=== PATIENT | male | born 1955 | race Caucasian/White ===

== ENCOUNTER 2017-11-25 06:33 | Emergency (ER) | payer OTHER ==
[~2017-11-25] VITALS: Ht 175.3 cm; Wt 56.6 kg
[~2017-11-25 06:33] MED LIST: ACET325T96 PO; CALCTAB5 PO; CHOL2000 PO; CLOZ100T PO; CLZ100 PO; DOCU100C31 PO; FERR1TAB13 PO; HYDR-3124 PO; LEVO200T6 PO; PHN/100 PO; PRLSR20 PO; SENN1TAB86 PO
[2017-11-25 06:43] VITALS: Ht 175.3 cm; Wt 56.6 kg
[2017-11-25] MEDS ORDERED: hydrOXYzine HCL 25 MG TAB PO STA (06:52)
[2017-11-25 07:28] LABS: BASO % 0.5 %; BASO ABS # 0.04 K/uL (0-0.2); EOS % 1.5 %; EOS ABS # 0.12 K/uL (0-0.5); HEMATOCRIT 41.7 % (42-52); HEMOGLOBIN 13.8 g/dL (14.0-18.0); IG# 0.02 K/uL (0.00-0.02); LYMPH % 13.7 %; LYMPH ABS # 1.11 K/uL (1.2-3.4); MEAN CORPUSCULAR HEMOGLOBIN 31.4 pg (25-34); MEAN CORPUSCULAR HGB CONC 33.1 g/dl (32-36); MEAN PLATELET VOLUME 11.3 fL (7.4-10.4); MONO % 7.9 %; MONO ABS # 0.64 K/uL (0.11-0.59); NEUT % 76.2 %; NEUT ABS # 6.19 K/uL (1.4-6.5); PLATELET COUNT 116 K/uL (130-400); RED CELL DISTRIBUTION WIDTH SD 48.7 fL (36.4-46.3); WHITE BLOOD COUNT 8.12 K/uL (4.8-10.8)
--- NOTE | 2017-11-25 07:30 | DIAGNOSTIC IMAGING REPORT ---
CHEST ONE VIEW PORTABLE CLINICAL HISTORY: SOB, anxiety dyspnea COMPARISON STUDY: 12/21/2014 FINDINGS: The bones soft tissues and hemidiaphragms are normal. The cardiomediastinal silhouette is normal. The lungs are clear. The pulmonary vasculature is normal. Mild emphysematous/interstitial change. IMPRESSION: Mild emphysematous change. Mild chronic interstitial change. No acute process. The above report was generated using voice recognition software. It may contain grammatical, syntax or spelling errors. Electronically signed by: Christian Lanza M.D. 11/25/2017 7:28 AM Dictated Date/Time: 11/25/2017 7:27 AM
[2017-11-25 07:47] LABS: ALBUMIN 3.3 gm/dl (3.4-5.0); CALCIUM 8.1 mg/dl (8.5-10.1); CREATININE 0.95 mg/dl (0.60-1.40); POTASSIUM 3.7 mmol/L (3.5-5.1)
--- NOTE | 2017-11-25 07:48 | EMERGENCY ROOM VISIT NOTE ---
History Report prepared by Tacho: Rupa Mejia Under the Supervision of: Dr. Migdalia Joshi M.D. First contact with patient: 06:42 Chief Complaint: OTHER COMPLAINT Stated Complaint: TIRED/ANXIETY History of Present Illness The patient is a 61 year old male who presents to the Emergency Room with complaints of constant fatigue and anxiety beginning this morning. The patient states he is "tired and worried". The patient states he lives at the [facility]. an in "old folks home" He states if he worries too much he "cant relax". The patient states he "cant get enough cigarettes" when asked how we can be help him. The patient states he has been "worried about the future" over the past week. He states he walks to a [employer] every morning to get cigarettes and coffee and he is worried about slipping on the ice. He is also worried about being "admitted to the hospital". The patient states he called 911 this morning. Presently, the patient states he feels short of breath. He denies any fever or cough. The patient smokes about 4 cigarettes a day. The patient has a history of schizophrenia. The patient is requesting breakfast. Source of History: patient Onset: this morning Position: other (generalized) Timing: constant Associated Symptoms: + SOB, + fatigue, No fevers Review of Systems See HPI for pertinent positives & negatives. A total of 10 systems reviewed and were otherwise negative. Past Medical & Surgical Medical Problems: (1) Anxiety (2) Arthritis (3) Depression (4) Gastrointestinal disorder (5) Schizophrenia (6) Seizure disorder (7) Stomach problems (8) Thyroid disease Family History No pertinent family history Social History Smoking Status: Current Every Day Smoker Alcohol Use: occasionally Marital Status: single Housing Status: lives alone Occupation Status: disabled Current/Historical Medications Scheduled Calcium (Caltrate), 600 MG PO QAM Cholecalciferol (Vitamin D3), 1 CAP PO QAM Clozapine (Clozaril), 100 MG PO QAM Clozapine (Clozapine), 300 MG PO HS Ferrous Sulfate (Kp Ferrous Sulfate), 1 TAB PO QAM Hydroxyzine Hcl (Atarax), 25 MG PO HS Omeprazole (Prilosec), 20 MG PO BID Phenytoin Sodium (Dilantin), 100 MG PO TID Scheduled PRN Acetaminophen Tab (Tylenol), 650 MG PO Q6H PRN for Pain or Fever Docusate Sodium (Docusate Sodium), 1 CAP PO DAILY PRN for Constipation Hydroxyzine Pamoate (Vistaril), 25 MG PO Q6 PRN for Anxiety Sennosides-Docusate Sodium (Sennalax-S), 1 TAB PO DAILY PRN for Constipation Allergies Coded Allergies: No Known Allergies (Verified , none, 11/25/17) Physical Exam Vital Signs Date Time Temp Pulse Resp B/P (MAP) Pulse Ox O2 Delivery O2 Flow Rate FiO2 11/25/17 11:10 36.7 81 18 123/74 97 Room Air 11/25/17 10:53 76 11/25/17 09:36 77 105/82 96 11/25/17 08:01 71 99/60 96 Room Air 11/25/17 06:43 36.5 86 16 99/82 96 Room Air 11/25/17 06:41 85 Physical Exam Vital signs reviewed. General: Well-appearing male, in no significant distress. HEENT: No scleral icterus, PERRLA, neck supple. Atraumatic. Cardiovascular: Regular rate and rhythm, no extra sounds. Pulmonary: Clear to auscultation bilaterally, normal work of breathing. Abdomen: Soft, nontender, nondistended, positive bowel sounds. Musculoskeletal: Atraumatic, no peripheral edema. Neurologic: Patient awake alert and oriented x 3, full strength in all 4 extremities. Cranial nerves 2 through 12 grossly intact. Skin: Warm, dry, no rash Psych: Anxious, no SI no HI Medical Decision & Procedures ER Provider Diagnostic Interpretation: Radiology results as stated below per my review and radiologist interpretation: CHEST ONE VIEW PORTABLE FINDINGS: The bones soft tissues and hemidiaphragms are normal. The cardiomediastinal silhouette is normal. The lungs are clear. The pulmonary vasculature is normal. Mild emphysematous/interstitial change. IMPRESSION: Mild emphysematous change. Mild chronic interstitial change. No acute process. The above report was generated using voice recognition software. It may contain grammatical, syntax or spelling errors. Electronically signed by: Christian Lanza M.D. Laboratory Results 11/25/17 07:13 Red Blood Count 4.39, Mean Corpuscular Volume 95.0, Mean Corpuscular Hemoglobin 31.4, Mean Corpuscular Hemoglobin Concent 33.1, Mean Platelet Volume 11.3, Neutrophils (%) (Auto) 76.2, Lymphocytes (%) (Auto) 13.7, Monocytes (%) (Auto) 7.9, Eosinophils (%) (Auto) 1.5, Basophils (%) (Auto) 0.5, Neutrophils # (Auto) 6.19, Lymphocytes # (Auto) 1.11, Monocytes # (Auto) 0.64, Eosinophils # (Auto) 0.12, Basophils # (Auto) 0.04 11/25/17 07:13 Test 11/25/17 07:13 11/25/17 07:22 White Blood Count 8.12 K/uL (4.8-10.8) Red Blood Count 4.39 M/uL (4.7-6.1) Hemoglobin 13.8 g/dL (14.0-18.0) Hematocrit 41.7 % (42-52) Mean Corpuscular Volume 95.0 fL (80-100) Mean Corpuscular Hemoglobin 31.4 pg (25-34) Mean Corpuscular Hemoglobin Concent 33.1 g/dl (32-36) Platelet Count 116 K/uL (130-400) Mean Platelet Volume 11.3 fL (7.4-10.4) Neutrophils (%) (Auto) 76.2 % Lymphocytes (%) (Auto) 13.7 % Monocytes (%) (Auto) 7.9 % Eosinophils (%) (Auto) 1.5 % Basophils (%) (Auto) 0.5 % Neutrophils # (Auto) 6.19 K/uL (1.4-6.5) Lymphocytes # (Auto) 1.11 K/uL (1.2-3.4) Monocytes # (Auto) 0.64 K/uL (0.11-0.59) Eosinophils # (Auto) 0.12 K/uL (0-0.5) Basophils # (Auto) 0.04 K/uL (0-0.2) RDW Standard Deviation 48.7 fL (36.4-46.3) RDW Coefficient of Variation 14.0 % (11.5-14.5) Immature Granulocyte % (Auto) 0.2 % Immature Granulocyte # (Auto) 0.02 K/uL (0.00-0.02) Anion Gap 9.0 mmol/L (3-11) Est Creatinine Clear Calc Drug Dose 63.7 ml/min Estimated GFR () 98.3 Estimated GFR (Non- 84.9 BUN/Creatinine Ratio 13.9 (10-20) Calcium Level 8.1 mg/dl (8.5-10.1) Magnesium Level 2.1 mg/dl (1.8-2.4) Total Bilirubin 0.5 mg/dl (0.2-1) Direct Bilirubin 0.2 mg/dl (0-0.2) Aspartate Amino Transf (AST/SGOT) 16 U/L (15-37) Alanine Aminotransferase (ALT/SGPT) 27 U/L (12-78) Alkaline Phosphatase 107 U/L (45-117) Total Creatine Kinase 55 U/L (39-308) Creatine Kinase MB 1.2 ng/ml (0.5-3.6) Creatine Kinase MB Ratio 2.2 (0-3.0) Total Protein 6.7 gm/dl (6.4-8.2) Albumin 3.3 gm/dl (3.4-5.0) Salicylates Level < 1.7 mg/dl (2.8-20) Acetaminophen Level < 2 ug/ml (10-30) Phenytoin (Dilantin) Level 17.5 mcg/mL (10-20) Ethyl Alcohol mg/dL < 3.0 mg/dl (0-3) Bedside Troponin I < 0.030 ng/ml (0-0.045) Laboratory results per my review. Medications Administered Medications (Trade) Dose Ordered Sig/Kev Route Start Time Stop Time Status Last Admin Dose Admin Hydroxyzine HCl (Vistaril Tab) 25 mg NOW STAT PO 11/25/17 06:52 11/25/17 06:54 DC 11/25/17 07:13 25 MG ECG Indication: other Rate (beats per minute): 78 Rhythm: normal sinus Findings: no acute ischemic change, no ectopy Change: EKG interpreted by me. ED Course 0649: Past medical records reviewed. The patient was evaluated in room B2. A complete history and physical examination was performed. 0652: Ordered Vistaril Tab 25 mg PO. 0943: The psychiatric geriatric case manager will evaluate the patient. 1050: Terri-psychiatric geriatric case manager evaluated the patient. She states the patient is safe to go back to his assisted-living home. Terri called his assisted living and advised them to talk to psychiatrist to follow up for his anxiety. She states the patient does not need a mental health admission. 1138: Upon reevaluation, the patient appeared to have improvement of his symptoms. I discussed findings with him. She verbalized agreement of the treatment plan. The patient was discharged home. Medical Decision Differential diagnosis: Etiologies such as mood disorder, infection, hypoglycemia, electrolyte abnormalities, cardiac sources, intracerebral event, toxicologic, neurologic, ACS, CHF, pneumonia, as well as others were entertained. This patient was evaluated and appeared to be in no significant distress. The patient is anxious and somewhat scattered with his thought process. Patient seems to be anxious, worried about his future health and slipping on the ice. Patient was given Vistaril 25 mg by mouth. He does have a documented history of schizophrenia. A medical evaluation was performed. There is no evidence of acute coronary syndrome or pneumonia on exam. He apparently follows with an outpatient psychiatrist. The patient lives in a supervised living situation. After case management contacted the nursing facility, it was clear that this is the patient's baseline. They were not aware that he had called the ambulance. The patient feels comfortable with the plan to return home. Nursing staff feels comfortable with his care. He was advised to use his Vistaril every 6 hours as needed for anxiety. He will follow-up with his psychiatrist as soon as possible and return to the ER for worsening of symptoms or any medical concerns. Medication Reconcilliation Current Medication List: was personally reviewed by me Blood Pressure Screening Patient's blood pressure: Normal blood pressure Impression Primary Impression: Anxiety Scribe Attestation The scribe's documentation has been prepared under my direction and personally reviewed by me in its entirety. I confirm that the note above accurately reflects all work, treatment, procedures, and medical decision making performed by me. Departure Information Dispostion Home / Self-Care Prescriptions Hydroxyzine Pamoate (VISTARIL) 25 Mg Cap 25 MG PO Q6 Y for Anxiety, #30 CAP Prov: Migdalia Joshi M.D. 11/25/17 Referrals Chidi Hunt M.D. (PCP) Forms HOME CARE DOCUMENTATION FORM, IMPORTANT VISIT INFORMATION, WORK / SCHOOL INSTRUCTIONS Patient Instructions My [facility] Additional Instructions Diagnosis: Anxiety Vistaril 25 mg every 6 hours as needed for anxiety Follow up with your psychiatrist ARNIE for reevaluation. Return to the ED for worsening of symptoms or any medical concerns.
[2017-11-25 07:51] LABS: PHENYTOIN (DILANTIN) 17.5 mcg/mL (10-20)
[2017-11-25 07:52] LABS: CKMB 1.2 ng/ml (0.5-3.6); TOTAL PROTEIN 6.7 gm/dl (6.4-8.2)
[2017-11-25 11:10] VITALS: BP 123/74; PULSE 81; TEMP 36.7; O2SAT 97
[2017-11-25] MEDS ORDERED: HYDR1CAP85 PO (11:29)
== END 2017-11-25 11:48 | disposition home or self-care (01) ==
LOC: EDBD 06:33 → C.EDB 06:34
DX: F41.9 Anxiety disorder, unspecified (principal); F17.210 Nicotine dependence, cigarettes, uncomplicated; F20.9 Schizophrenia, unspecified; F32.9 Major depressive disorder, single episode, unspecified; G40.909 Epilepsy, unspecified, not intractable, without status epilepticus; M19.90 Unspecified osteoarthritis, unspecified site; Z79.899 Other long term (current) drug therapy

== ENCOUNTER 2018-03-01 06:32 | Emergency (ER) | payer OTHER ==
[~2018-03-01] VITALS: Ht 177.8 cm; Wt 54.0 kg
[~2018-03-01 06:32] MED LIST changes: +ACET-1693 PO; -ACET325T96 PO; -LEVO200T6 PO
[2018-03-01 06:35] VITALS: TEMP 36.5; Ht 177.8 cm; Wt 54.0 kg
[2018-03-01] MEDS ORDERED: CALC-393 PO (07:36)
[2018-03-01] MEDS ORDERED: CLZ100 PO (07:36)
[2018-03-01] MEDS ORDERED: LEVO200T PO (07:36)
--- NOTE | 2018-03-01 07:36 | DIAGNOSTIC IMAGING REPORT ---
CHEST ONE VIEW PORTABLE HISTORY: 62 years-old Male CP acute atypical chest pain COMPARISON: Chest radiograph 11/25/2017 TECHNIQUE: Portable AP view of the chest FINDINGS: Cardiomediastinal and hilar silhouettes are within normal limits. Mild right apical pleural thickening redemonstrated without pneumothorax, pleural effusion, focal airspace consolidation or overt pulmonary edema. The bones of the chest appear grossly intact. IMPRESSION: No acute process. The above report was generated using voice recognition software. It may contain grammatical, syntax or spelling errors. Electronically signed by: Darryl Fry M.D. 03/01/2018 7:34 AM Dictated Date/Time: 03/01/2018 7:33 AM
--- NOTE | 2018-03-01 07:56 | EMERGENCY ROOM VISIT NOTE ---
History Report prepared by Tacho: Jatin Castañeda Under the Supervision of: Dr. Slim Skinner D.O. First contact with patient: 06:37 Chief Complaint: SHORTNESS OF BREATH Stated Complaint: BREATHING DIFFICULTY Nursing Triage Summary: patient states " I've had difficulty breathing for the past eight years and tonight I was thinking about it and I got nervous. Sometimes its nice just to talk to someone about it. Eating apples usually helps". patient arrives eating an apple and states he is already starting to feel better now that he is at the hospital. denies any active SOB at this time. History of Present Illness The patient is a 62 year old male who presents to the Emergency Room with complaints of constant chest pain for the past 8 years, though it worsened today. He additionally notes that he has had left chest tightness for the past 8 years. The patient states that yesterday he was not "behaving right", and he could not figure out how to use his credit card. He states that he smokes cigarettes. Source of History: patient Onset: 8 years ago Position: other (generalized) Quality: other (shortness of breath) Timing: constant, worsening Note: Associated symptoms: Chest tightness Review of Systems See HPI for pertinent positives & negatives. A total of 10 systems reviewed and were otherwise negative. Past Medical & Surgical Medical Problems: (1) Anxiety (2) Arthritis (3) Depression (4) Gastrointestinal disorder (5) Schizophrenia (6) Seizure disorder (7) Stomach problems (8) Thyroid disease Family History No pertinent family history Social History Smoking Status: Former Smoker Alcohol Use: occasionally Marital Status: single Housing Status: lives alone Occupation Status: disabled Current/Historical Medications Scheduled Calcium Carbonate (Calcium), 1 TAB PO DAILY Cholecalciferol (Vitamin D3), 1 CAP PO QAM Clozapine (Clozapine), 300 MG PO HS Clozapine (Clozapine), 100 MG PO QAM Ferrous Sulfate (Kp Ferrous Sulfate), 1 TAB PO QAM Hydroxyzine Hcl (Atarax), 25 MG PO HS Levothyroxine Sodium (Synthroid), 200 MCG PO DAILY Omeprazole (Prilosec), 20 MG PO BID Phenytoin Sodium (Dilantin), 100 MG PO TID Scheduled PRN Acetaminophen Tab (Tylenol), 650 MG PO Q6H PRN for Pain or Fever Sennosides-Docusate Sodium (Sennalax-S), 1 TAB PO DAILY PRN for Constipation Allergies Coded Allergies: No Known Allergies (Verified , none, 03/01/18) Physical Exam Vital Signs Date Time Temp Pulse Resp B/P (MAP) Pulse Ox O2 Delivery O2 Flow Rate FiO2 03/01/18 07:59 73 16 107/66 97 Room Air 03/01/18 06:35 36.5 83 20 115/79 96 Room Air 03/01/18 06:35 96 Room Air Physical Exam CONSTITUTIONAL/VITAL SIGNS: Reviewed / noted above. GENERAL: Non-toxic in appearance. INTEGUMENTARY: Warm, dry, and [place]. HEAD: Normocephalic. EYES: without scleral icterus or trauma. ENT/OROPHARYNX: clear and moist. LYMPHADENOPATHY/NECK: Is supple without lymphadenopathy or meningismus. RESPIRATORY: Lungs clear and equal. CARDIOVASCULAR: Regular rate and rhythm. GI/ABDOMEN: Soft and nontender. No organomegaly or pulsatile mass. No rebound or guarding. Normal bowel sounds. EXTREMITIES: Warm and well perfused. BACK: No CVA tenderness. NEUROLOGICAL: Intact without focal deficits. PSYCHIATRIC: normal affect. MUSCULOSKELETAL: Normally developed with good muscle tone. Medical Decision & Procedures ER Provider Diagnostic Interpretation: Radiology results as stated below per my review and radiologist interpretation: CHEST ONE VIEW PORTABLE HISTORY: 62 years-old Male CP acute atypical chest pain COMPARISON: Chest radiograph 11/25/2017 TECHNIQUE: Portable AP view of the chest FINDINGS: Cardiomediastinal and hilar silhouettes are within normal limits. Mild right apical pleural thickening redemonstrated without pneumothorax, pleural effusion, focal airspace consolidation or overt pulmonary edema. The bones of the chest appear grossly intact. IMPRESSION: No acute process. The above report was generated using voice recognition software. It may contain grammatical, syntax or spelling errors. Electronically signed by: Darryl Fry M.D. 03/01/2018 7:34 AM Dictated Date/Time: 03/01/2018 7:33 AM ECG Per My Interpretation Indication: chest pain, SOB/dyspnea Rate (beats per minute): 77 Rhythm: normal sinus Findings: no ectopy, other (No ST elevation) ED Course 0637: Previous medical records were reviewed. The patient was evaluated in room B7. A complete history and physical examination was performed. 0759: On reevaluation, the patient is doing well. I discussed the results and findings with the patient. He verbalized agreement of the treatment plan. He was discharged home. Medical Decision the differential was considered includes acute myocardial infarction, acute coronary syndrome, myocarditis, pericarditis, pericardial effusions /tamponade, esophageal perforation, pulmonary embolism, pneumonia, pneumothorax, cardiomyopathy, congestive heart, anemia , COPD/asthma exacerbation. This is a 62-year-old male who presents to the ED with a chief complaint of chest pain and shortness of breath for the past 8 years. He decided to come to the ED today because he has not had it checked. The patient has a history of schizophrenia and anxiety. He also has a history of seizure disorder. His vital signs are normal. His physical exam was normal. A 12-lead EKG reveals normal sinus rhythm. Chest x-ray was negative for acute disease. The patient did not want blood work. The patient was told the results of the test. He was felt to be stable for discharge. Medication Reconcilliation Current Medication List: was personally reviewed by me Blood Pressure Screening Patient's blood pressure: Normal blood pressure Impression Primary Impression: Dyspnea Additional Impression: Left sided chest pain Scribe Attestation The scribe's documentation has been prepared under my direction and personally reviewed by me in its entirety. I confirm that the note above accurately reflects all work, treatment, procedures, and medical decision making performed by me. Departure Information Dispostion Home / Self-Care Referrals Chidi Hunt M.D. (PCP) Forms HOME CARE DOCUMENTATION FORM, IMPORTANT VISIT INFORMATION Patient Instructions Chest Pain - [facility], [facility] Additional Instructions Follow-up with your doctor for further care and evaluation in 1-2 days. Return to the emergency department for worsening or new symptoms or any concerns. You have been examined and treated today on an emergency basis only. This is not a substitute for, or an effort to provide, complete comprehensive medical care. It is impossible to recognize and treat all injuries or illnesses in a single emergency department visit. It is therefore important that you follow up closely with your doctor. Call as soon as possible for an appointment. Problem Qualifiers
[2018-03-01 07:59] VITALS: BP 107/66; PULSE 73; O2SAT 97
== END 2018-03-01 08:15 | disposition home or self-care (01) ==
LOC: EDBD 06:32 → C.EDB 06:33
DX: R06.00 Dyspnea, unspecified (principal); R07.9 Chest pain, unspecified; F41.9 Anxiety disorder, unspecified; M19.90 Unspecified osteoarthritis, unspecified site; F32.9 Major depressive disorder, single episode, unspecified; F20.9 Schizophrenia, unspecified; G40.909 Epilepsy, unspecified, not intractable, without status epilepticus; Z87.891 Personal history of nicotine dependence; Z79.899 Other long term (current) drug therapy

== ENCOUNTER 2025-09-08 11:13 | Inpatient (IN) ==
--- NOTE | 2025-09-08 12:03 | Emergency Department Note ---
History of Present Illness General Chief complaint: Mental Health Evaluation Stated complaint: mhe Time Seen by Provider: 09/08/25 11:15 Source: patient Mode of arrival: EMS Limitations: no limitations History of Present Illness Patient is a 69-year-old male with history of schizophrenia who presents by EMS from a [facility] after intentionally cutting his wrist. He attempted to cut his left wrist with scissors in order to "get the blood out of his body". He did not have any intent to commit suicide he just stated that he had "too much blood in his body". Bleeding stopped prior to arrival. Laceration is very superficial. Denies any HI at this time. No auditory or visual hallucinations. He last stopped his psych medication on Saturday. Patient denies any headache, fevers, chills, cough, shortness of breath, chest pain, nausea, vomiting, abdominal pain. Home Medications Medication Instructions Recorded Confirmed Type omeprazole 20 mg capsule,delayed 20 mg PO BID 09/06/18 07/14/25 History release hydroxyzine pamoate 25 mg capsule 25 mg PO HS #5 caps 01/01/20 07/14/25 Rx cyanocobalamin (vitamin B-12) 1,000 mcg PO DAILY #90 tabs 07/03/23 07/14/25 Rx 1,000 mcg tablet (Vitamin B-12) clozapine 100 mg tablet 100 mg PO BID 03/24/24 07/14/25 History clozapine 200 mg tablet 200 mg PO HS 03/24/24 07/14/25 History cholecalciferol (vitamin D3) 50 2,000 unit PO QPM 04/20/25 07/14/25 History mcg (2,000 unit) tablet (Vitamin D3) ferrous sulfate 325 mg (65 mg 325 mg PO QAM 04/20/25 07/14/25 History iron) tablet levothyroxine 137 mcg tablet 137 mcg PO QAM 04/20/25 07/14/25 History calcium carbonate (Calcium 600) 600 mg PO QAM 07/13/25 07/14/25 History sertraline 50 mg tablet 50 mg PO DAILY 07/13/25 07/14/25 History acetaminophen 325 mg tablet 325 - 650 mg PO Q6 PRN pain. 07/14/25 07/14/25 History cholecalciferol (vitamin D3) 25 25 mcg PO QPM 07/14/25 07/14/25 History mcg (1,000 unit) tablet (Vitamin D3) eucalyptus-menthol oral mucosal 1 john paul mucous membrane Q4 PRN Cough 07/14/25 07/14/25 History lozenge linaclotide 290 mcg capsule 290 mcg PO DAILY #30 caps 07/22/25 Rx (Linzess) polyethylene glycol 3350 17 17 g PO DAILY #119 grams 07/22/25 Rx gram/dose oral powder (Miralax) sennosides 8.6 mg tablet (Senna 8.6 mg PO QPM #30 tabs 07/22/25 Rx Lax) sodium phosphates 19 gram-7 118 ml DC DAILY PRN constipation 07/22/25 Rx gram/118 mL enema (Fleet Enema) #133 mL Allergies Allergy/AdvReac Type Severity Reaction Status Date / Time No Known Allergies Allergy none Verified 03/24/24 14:14 Past Med/Surg History Problem List (Updated 09/08/25 @ 14:07 by Matt Stuart MD) Delusional thoughts (Acute) Superficial laceration of forearm (Acute) Suicidal ideations (Acute) Acute UTI (urinary tract infection) (Acute) Schizophrenia (Chronic) Hyperlipidemia Delgado esophagus (Chronic) Hypothyroidism (Chronic) Nonadherence to medical treatment Intentional self-harm Acute lower urinary tract infection Constipation (Chronic) Vitamin B12 deficiency (Chronic) Arthritis (Chronic) Medical History History of colonic polyps Impacted cerumen of both ears Left buttock abscess Stercoral colitis Fecal impaction Acute metabolic encephalopathy Abnormal brain MRI Acute urinary retention Rhinovirus infection Seizure disorder taken off dilantin History of colon polyps Hiatal hernia History of panic attacks Fracture of femoral neck, left Surgical History History of incision and drainage (07/16/25) Dr. Silvestre buttock abscess History of colonoscopy History of repair of hip fracture left History of esophagogastroduodenoscopy (EGD) Family History Mother Family history of diabetes mellitus Other Family history non-contributory Denies family history of Ovarian cancer Prostate cancer Myocardial infarction Breast cancer Colorectal cancer Social History Smoking Status: Former smoker Tobacco Type: Cigarettes Age Started Using Tobacco: 18; packs per day: 0.25; Cigarettes Per Day: 1-3 a week; Second Hand Exposure: No; Do You Dip or Chew Tobacco: No; Hx Alcohol Use: No Hx Substance Use: No Preferred Language: Qatari Communication Ability: Effective Visual Impairment: No Limitations Hearing Ability: Normal Order Department Supervisor Required: No Beliefs That Will Affect Care: None Current Living Situation: Personal Care Facility Current Living Situation Comment: [facility] Feels Safe at Home: Yes Childhood Exposure to Second-Hand Smoke: Yes Dental Care, Regularly: No Physical Activity Frequency: 3-4 Times per Week Seatbelt Use: always Sunscreen Use: No Assistive Devices: Walker Review of Systems Review of systems negative outside of positive findings mentioned in HPI. Physical Exam Vital Signs Vital Signs - 24 hr 09/08/25 11:30 09/08/25 13:31 Temperature 36.4 C L Temperature Source Oral Pulse Rate 84 Pulse Rate [Finger] 72 Respiratory Rate 20 18 Respiratory Effort / Characteristics Non-Labored Spontaneous Non-Labored Spontaneous Respiratory Depth Normal Normal Respiratory Pattern Regular Regular Blood Pressure 113/70 Blood Pressure [Left Arm] 123/69 Blood Pressure Mean 84 Blood Pressure Mean [Left Arm] 87 Pulse Oximetry 96 97 Oxygen Delivery Method Room Air Room Air Sepsis Recent Fever Within 48 Hours No Sepsis New/Unexplained Change in Mental Status N/A Sepsis Action Taken by Nursing No Action Required See below Constitutional WD/WN, vitals as above Eyes PERRL, conjunctivae normal, anicteric sclerae ENMT external ear and nose normal, oropharynx normal Neck trachea midline, no thyromegaly Respiratory normal respiratory effort, lungs clear to auscultation Cardiovascular RRR, no murmur, no edema Gastrointestinal (Abdomen) normal bowel sounds, soft, nontender, no hepatosplenomegaly Musculoskeletal no cyanosis or clubbing, extremities motor strength 5/5 Skin no rashes, warm and dry Psychiatric A+Ox3, euthymic affect Orientation: alert and oriented x 3 Apperance: + disheveled Eye Contact: good eye contact Speech: speech normal rate, rhythm, volume Affect: euthymic affect Thought Process: linear, logical thought process Thought Content: + delusions Suicidal Thoughts: denies suicidal thoughts Homicidal Thoughts: denies suicidal thoughts Hallucinations: no auditory hallucinations and no visual hallucinations Insight: good insight Judgment: + poor judgement Course Administered Medications Discontinued Medications Ceftriaxone Sodium (Rocephin) 2,000 mg in 50 mls @ 100 mls/hr IV NOW STA Stop: 09/08/25 13:24 Last Infusion: 09/08/25 13:17 Dose: 0 mls/hr Documented By: kam Admin: 09/08/25 13:16 Dose: 100 mls/hr Documented By: kam Medical Decision Making Differential Diagnosis DDx includes but not limited to: UTI, sepsis, metabolic encephalopathy, intracranial abnormality, paranoid delusions, decompensated schizophrenia, SI Medical Records Attestation: I reviewed the patient's medical records. Home Medications Current Medication List: was personally reviewed by me Laboratory Data Attestation: I reviewed the patient's lab results. 09/08/25 11:43 09/08/25 11:43 Lab Results 09/08/25 09/08/25 Range/Units 11:37 11:43 WBC 18.74 H (4.8-10.8) K/ul RBC 4.90 (4.70-6.10) M/uL Hgb 14.2 (14.0-18.0) g/dL Hct 43.5 (42.0-52.0) % MCV 88.8 (80.0-100.0) fL MCH 29.0 (25.0-34.0) pg MCHC 32.6 (32.0-36.0) g/dL RDW Std Deviation 47.7 H (36.4-46.3) fL RDW Coeff of Stefani 14.7 H (11.5-14.5) % Plt Count 203 (130-400) K/uL MPV 12.3 (9.4-12.4) fL Immature Gran % (Auto) 0.5 % Neut % (Auto) 82.3 % Lymph % (Auto) 10.8 % Amelia % (Auto) 6.1 % Eos % (Auto) 0.1 % Baso % (Auto) 0.2 % Neut # (Auto) 15.42 H (1.40-6.50) K/uL Lymph # (Auto) 2.03 (1.20-3.40) K/uL Amelia # (Auto) 1.15 H (0.11-0.59) K/uL Eos # (Auto) 0.02 (0.00-0.50) K/uL Baso # (Auto) 0.03 (0.00-0.20) K/uL Immature Gran # (Auto) 0.09 (0.01-0.20) K/uL Sodium 139 (136-145) mmol/L Potassium 3.2 L (3.5-5.1) mmol/L Chloride 93 L (98-107) mmol/L Carbon Dioxide 35 H (21-32) mmol/L Anion Gap 11 (3-11) BUN 29 H (6-23) mg/dl Creatinine 1.16 (0.6-1.4) mg/dl Est Cr Clr Drug Dosing Not Reportable eGFR 67.34 BUN/Creatinine Ratio 25.0 H (10-20) Glucose 132 H (70-99(Fasting)) mg/dl Calcium 10.1 (8.6-10.3) mg/dl Total Bilirubin 0.5 (0.2-1.0) mg/dl AST 16 (13-39) U/L ALT 12 (7-52) U/L Alkaline Phosphatase 74 (34-104) U/L Total Protein 7.6 (6.0-8.3) gm/dl Albumin 4.7 (3.4-5.0) gm/dl Globulin 2.9 (2.5-4.0) gm/dl Albumin/Globulin Ratio 1.6 (0.9-2) TSH 0.590 (0.300-4.500) uIu/ml Urine Color Yellow Urine Appearance Cloudy A (Clear) Urine pH 7.0 (4.5-7.5) Ur Specific [place] 1.021 (1.000-1.030) Urine Protein 1+ H (Negative) Urine Glucose (UA) Negative (Negative) Urine Ketones Negative (Negative) Urine Blood Negative (Negative) Urine Nitrite Negative (Negative) Urine Bilirubin Negative (Negative) Urine Urobilinogen Negative (Negative) Ur Leukocyte Esterase 3+ H (Negative) Urine WBC (Auto) >50 H (0-5) /hpf Urine RBC (Auto) 0-2 (0-2) /hpf U Hyaline Cast (Auto) 6-10 H (0-2) /lpf U Epithel Cells (Auto) 0-2 (0-2) /hpf Urine Bacteria (Auto) 4+ H (None Seen) Hyaline Casts Present A (None Presnt) /lpf Urine Comment Salicylates < 3.0 L (3.0-30) mg/dl Urine Opiates Screen Neg (Neg) Ur Methadone, Qual Neg (Neg) Urine Fentanyl Screen Neg (Neg) Acetaminophen < 3 L (10-30) ug/ml Urine Barbiturates Neg (Neg) Ur Phencyclidine (PCP) Neg (Neg) U Amphetamin/Meth Scrn Neg (Neg) MDMA (Ecstasy) Screen Neg (Neg) U Benzodiazepines Scrn Neg (Neg) Ur Cocaine Metabolite Neg (Neg) U Marijuana (THC) Screen Neg (Neg) Ethyl Alcohol mg/dL < 10.0 (<10.0) mg/dl Imaging Data Radiologist's Impression: Head CT 09/08/25 11:58 CT head/brain wo con CLINICAL HISTORY: 69 years-old Male with AMS. Acutely altered mental status TECHNIQUE: Multiple axial CT images of the head were obtained without contrast. A dose lowering technique was utilized adhering to the principles of ALARA. CT DOSE: 625.8 mGy.cm COMPARISON: 07/13/[address], brain MR 07/14/2025 FINDINGS: No acute intracranial hemorrhage, midline shift, intracranial mass, hydrocephalus, territorial ischemia or abnormal extra-axial collection. Involutional changes with probable mild chronic microvascular ischemic disease. The calvarium is intact. The paranasal sinuses, mastoid air cells, and middle ear cavities are clear. IMPRESSION: No acute intracranial abnormality identified. ACT 112: Negative or not required by law. The above report was generated using voice recognition software. It may contain grammatical, syntax or spelling errors. Electronically signed by: Miguel Fry M.D. 09/08/2025 1:12 PM [facility] Narrative Patient is a 69-year-old male with history as seen above who presents after he attempted to "drain blood out of his wrist". His bleeding was controlled prior to arrival. Superficial lacerations were noted on my examination. No evidence of vascular compromise to the wrist or hand. No indication for bedside repair of lacerations. Can be managed with localized wound care. No patient is awake and alert and oriented here today he does express some delusional thoughts such as "there is extra blood in my body and brain I need to get out". Story was corroborated with staff at [facility] who does state that he has had expressed some depressive thoughts recently. Medical workup was initiated here today for psychiatric clearance. Patient does have a leukocytosis of 18,000. No signs of endorgan damage or concern for sepsis. UA is consistent with infection. Though unlikely the source of his delusions cannot attribute all symptoms to underlying psychiatric illness until UTI has been appropriately treated and psychiatry has been consulted. Will admit to hospitalist service for management of UTI and delusional thought process as well as SI. IV Rocephin dose was given here today. Blood cultures were obtained and sent. Impression & Plan Acute UTI (urinary tract infection), Suicidal ideations, Superficial laceration of forearm, Delusional thoughts Discharge Plan Visit Data Chief Complaint: Mental Health Evaluation Stated Complaint: mhe ED Provider: Matt Stuart Discharge Problem: Acute UTI (urinary tract infection), Suicidal ideations, Superficial laceration of forearm, Delusional thoughts Patient Disposition: Admitted As Inpatient Condition: Good Forms Stand Alone Forms: My [facility], Suicide Prevention Resources Prescriptions Prescriptions: No Action hydroxyzine pamoate 25 mg capsule 25 mg PO HS Qty: 5 0RF cyanocobalamin (vitamin B-12) [Vitamin B-12] 1,000 mcg tablet 1,000 mcg PO DAILY Qty: 90 3RF clozapine 200 mg tablet 200 mg PO HS omeprazole 20 mg capsule,delayed release(DR/EC) 20 mg PO BID clozapine 100 mg tablet 100 mg PO BID Rx Instructions: 8am, 8pm levothyroxine 137 mcg tablet 137 mcg PO QAM ferrous sulfate 325 mg (65 mg iron) tablet 325 mg PO QAM cholecalciferol (vitamin D3) [Vitamin D3] 50 mcg (2,000 unit) tablet 2,000 unit PO QPM sertraline 50 mg tablet 50 mg PO DAILY calcium carbonate [Calcium 600] 600 mg calcium (1,500 mg) tablet 600 mg PO QAM cholecalciferol (vitamin D3) [Vitamin D3] 25 mcg (1,000 unit) Tablet 25 mcg PO QPM acetaminophen 325 mg Tablet 325 - 650 mg PO Q6 MDD 3g PRN (Reason: pain.) eucalyptus-menthol Lozenge 1 john paul MUCOUS MEMBRANE Q4 PRN (Reason: Cough) sennosides [Senna Lax] 8.6 mg Tablet 8.6 mg PO QPM Qty: 30 0RF Linzess 290 mcg capsule 290 mcg PO DAILY Qty: 30 0RF polyethylene glycol 3350 [Miralax] 17 gram/dose powder 17 g PO DAILY Qty: 119 0RF Fleet Enema 19-7 gram/118 mL enema 118 ml DC DAILY PRN (Reason: constipation) Qty: 133 0RF Rx Instructions: Please use as needed if you do not move your bowels for greater than 3 days. Referrals Referrals: [facility] [Non-Staff] -
[2025-09-08 12:08] LABS: Hematocrit (blood only) 43.5 % (42.0-52.0); Hemoglobin 14.2 g/dL (14.0-18.0); Immature Granulocytes # (auto) 0.09 K/uL (0.01-0.20); Immature Granulocytes % (auto) 0.5 %; Mean Corpuscular Hemoglobin 29.0 pg (25.0-34.0); Mean Corpuscular Volume 88.8 fL (80.0-100.0); Platelet Count 203 K/uL (130-400); RDW Standard Deviation 47.7 fL (36.4-46.3); Red Blood Count 4.90 M/uL (4.70-6.10); White Blood Count 18.74 K/ul (4.8-10.8)
[2025-09-08 12:13] LABS: Appearance Urine Cloudy (Clear); Bacteria Urine Automated 4+ (None Seen); Epithelial Cell Urine Auto 0-2 /hpf (0-2); Glucose Urine UA Negative (Negative); RBC Urine Automated 0-2 /hpf (0-2); WBC Urine Automated >50 /hpf (0-5)
[2025-09-08 12:24] LABS: Acetaminophen < 3 ug/ml (10-30); Salicylate < 3.0 mg/dl (3.0-30)
[2025-09-08 12:28] LABS: Alanine Aminotransferase 12 U/L (7-52); Albumin Globulin Ratio 1.6 (0.9-2); Albumin Level 4.7 gm/dl (3.4-5.0); Alkaline Phosphatase 74 U/L (34-104); Anion Gap 11 (3-11); Bilirubin,Total 0.5 mg/dl (0.2-1.0); Blood Urea Nitrogen 29 mg/dl (6-23); Calcium 10.1 mg/dl (8.6-10.3); Carbon Dioxide 35 mmol/L (21-32); Chloride 93 mmol/L (98-107); Globulin 2.9 gm/dl (2.5-4.0); Glucose 132 mg/dl (70-99(Fasting)); Potassium 3.2 mmol/L (3.5-5.1); Sodium 139 mmol/L (136-145); Total Protein 7.6 gm/dl (6.0-8.3)
[2025-09-08 12:38] LABS: Amphetamines+Metham, Urine Neg (Neg); MDMA (Ecstacy), Urine Neg (Neg); Marijuana, Urine Neg (Neg)
[2025-09-08 12:42] LABS: Thyroid Stimulating Hormone 0.590 uIu/ml (0.300-4.500)
--- NOTE | 2025-09-08 13:13 | CT Scan Report ---
CT head/brain wo con CLINICAL HISTORY: 69 years-old Male with AMS. Acutely altered mental status TECHNIQUE: Multiple axial CT images of the head were obtained without contrast. A dose lowering tech nique was utilized adhering to the principles of ALARA. CT DOSE: 625.8 mGy.cm COMPARISON: 07/13/[address], brain MR 07/14/2025 FINDINGS: No acute intracranial hemorrhage, midline shift, intracranial mass, hydrocephalus, territorial ischem ia or abnormal extra-axial collection. Involutional changes with probable mild chronic microvascular ischemic disease. The calvarium is intact. The paranasal sinuses, mastoid air cells, and middle ear cavities are clear . IMPRESSION: No acute intracranial abnormality identified. ACT 112: Negative or not required by law. The above report was generated using voice recognition software. It may contain grammatical, syntax o r spelling errors. Electronically signed by: Miguel Fry M.D. 09/08/2025 1:12 PM
[2025-09-08] MEDS: cefTRIAXone SODIUM 2,000 MG/50 ML BAG IV STA (13:16)
--- NOTE | 2025-09-08 13:34 | History & Physical Report ---
Date of Service September 08, 2025 Assessment & Plan (1) Acute lower urinary tract infection: (2) Intentional self-harm: (3) Nonadherence to medical treatment: (4) Schizophrenia: (5) Hypokalemia: (6) Superficial laceration of forearm: Plan In summary this is a 69-year-old male who presents after attempted self-harm at the personal-shelter found to have an acute urinary tract infection #Acute bacterial cystitis without hemorrhage Leukocytosis of 18,000 with urine concerning for infection based on microscopy; without overt symptoms other than polyuria however the patient's altered behavior may be in part related to the ongoing infection Continue Rocephin 2 g IV daily Follow urine cultures obtained in the emergency department #Suicidal ideation // Schizophrenia vs Schizoaffective disorder Patient self discontinued the majority of their medications at their personal- shelter; this may have also been up overall and precipitating their altered behavior and suicide attempt Psychiatry consulted - Superficial dressing of the left wrist, change when strikethrough is noted The remainder the patient's chronic medical conditions are stable and do not require adjustment to their outpatient regimen at this time DVT PPx: Start Lovenox 40 mg SQ daily History of Present Illness Chief Complaint: Suicidal ideation Primary Care Provider: JOHANNY Soto Mr. Rapp is a 69-year-old male whose active medical conditions include schizoaffective disorder, hypothyroidism, slow transit constipation among other chronic medical conditions who presented to the [facility] on 09/08 after an episode of self-inflicted injury in a proposed suicide attempt. The patient at the time my evaluation is not very participatory in history taking; they describe they discontinue taking their medications on 09/03 for reasons they did not specify to me. This morning, the patient began cutting their left wrist because they feel they have "too much blood". The patient is vague with respect to whether or not this was a suicide attempt stating they "would not mind dying". Patient states they have irregular bowel movements, most recently 1 was on Saturday, the . He states these are easily passed. He denies any pain with urination but does endorse increased frequency of urination. They deny any hematuria, fevers, chills, nausea, vomiting, abdominal pain or distention. Allergies Allergy/AdvReac Type Severity Reaction Status Date / Time No Known Allergies Allergy none Verified 03/24/24 14:14 Home Medications Medication Instructions Recorded Confirmed Type omeprazole 20 mg capsule,delayed 20 mg PO BID 09/06/18 07/14/25 History release hydroxyzine pamoate 25 mg capsule 25 mg PO HS #5 caps 01/01/20 07/14/25 Rx cyanocobalamin (vitamin B-12) 1,000 mcg PO DAILY #90 tabs 07/03/23 07/14/25 Rx 1,000 mcg tablet (Vitamin B-12) clozapine 100 mg tablet 100 mg PO BID 03/24/24 07/14/25 History clozapine 200 mg tablet 200 mg PO HS 03/24/24 07/14/25 History cholecalciferol (vitamin D3) 50 2,000 unit PO QPM 04/20/25 07/14/25 History mcg (2,000 unit) tablet (Vitamin D3) ferrous sulfate 325 mg (65 mg 325 mg PO QAM 04/20/25 07/14/25 History iron) tablet levothyroxine 137 mcg tablet 137 mcg PO QAM 04/20/25 07/14/25 History calcium carbonate (Calcium 600) 600 mg PO QAM 07/13/25 07/14/25 History sertraline 50 mg tablet 50 mg PO DAILY 07/13/25 07/14/25 History acetaminophen 325 mg tablet 325 - 650 mg PO Q6 PRN pain. 07/14/25 07/14/25 History cholecalciferol (vitamin D3) 25 25 mcg PO QPM 07/14/25 07/14/25 History mcg (1,000 unit) tablet (Vitamin D3) eucalyptus-menthol oral mucosal 1 john paul mucous membrane Q4 PRN Cough 07/14/25 07/14/25 History lozenge linaclotide 290 mcg capsule 290 mcg PO DAILY #30 caps 07/22/25 Rx (Linzess) polyethylene glycol 3350 17 17 g PO DAILY #119 grams 07/22/25 Rx gram/dose oral powder (Miralax) sennosides 8.6 mg tablet (Senna 8.6 mg PO QPM #30 tabs 07/22/25 Rx Lax) sodium phosphates 19 gram-7 118 ml [place] DAILY PRN constipation 07/22/25 Rx gram/118 mL enema (Fleet Enema) #133 mL Past Med/Surg History Problem List (Updated 09/08/25 @ 14:09 by Stu Roberts DO) Hypokalemia Delusional thoughts (Acute) Superficial laceration of forearm (Acute) Suicidal ideations (Acute) Acute UTI (urinary tract infection) (Acute) Schizophrenia (Chronic) Hyperlipidemia Delgado esophagus (Chronic) Hypothyroidism (Chronic) Nonadherence to medical treatment Intentional self-harm Acute lower urinary tract infection Constipation (Chronic) Vitamin B12 deficiency (Chronic) Arthritis (Chronic) Medical History History of colonic polyps Impacted cerumen of both ears Left buttock abscess Stercoral colitis Fecal impaction Acute metabolic encephalopathy Abnormal brain MRI Acute urinary retention Rhinovirus infection Seizure disorder taken off dilantin History of colon polyps Hiatal hernia History of panic attacks Fracture of femoral neck, left Surgical History History of incision and drainage (07/16/25) Dr. Silvestre buttock abscess History of colonoscopy History of repair of hip fracture left History of esophagogastroduodenoscopy (EGD) Family History Mother Family history of diabetes mellitus Other Family history non-contributory Denies family history of Ovarian cancer Prostate cancer Myocardial infarction Breast cancer Colorectal cancer Social History (Updated 09/08/25 @ 14:06 by Stu Roberts DO) Smoking Status: Former smoker Tobacco Type: Cigarettes Age Started Using Tobacco: 18; packs per day: 0.25; Cigarettes Per Day: 1-3 a week; Second Hand Exposure: No; Do You Dip or Chew Tobacco: No; Hx Alcohol Use: No Hx Substance Use: No Preferred Language: Belarusian Communication Ability: Effective Visual Impairment: No Limitations Hearing Ability: Normal Poultryman Required: No Beliefs That Will Affect Care: None Current Living Situation: Personal Care Facility Current Living Situation Comment: [facility] Feels Safe at Home: Yes Childhood Exposure to Second-Hand Smoke: Yes Dental Care, Regularly: No Physical Activity Frequency: 3-4 Times per Week Seatbelt Use: always Sunscreen Use: No Assistive Devices: Walker Review of Systems Review of Systems: Review of constitutional, cardiovascular, pulmonary, genitourinary, gastrointestinal, neurologic, psychiatric systems was unremarkable except for pertinent positive and negative findings discussed above Physical Exam Physical Exam: General: Elderly male in no acute distress Vital Signs: Reviewed HEENT: Tacky mucous membranes; pupils equally round reactive to light, extraocular motion intact Pulmonary: Symmetric chest wall excursion without restriction; clear to auscultation bilaterally Cardiovascular: Regular rate and rhythm without murmurs, rubs, or gallops; S1 and S2 normal; right radial pulse 2+ without notable lower extremity edema Gastrointestinal: Soft, nondistended, nontender throughout Genitourinary: No notable suprapubic tenderness Neurologic: Cranial nerves II through XII grossly intact; no discernible focal weakness no paresthesia Psychiatric: Alert and oriented to self, place, time; vague with descriptions of the events that led to his presentation to the hospital, nonspecific regarding his actions earlier on the day of presentation regarding his wrist injuries and whether or not this was an attempt to take his own life Skin: Left wrist with superficial linear lacerations that are hemostatic Results & Data Results & Data Vital Signs (Past 12 Hours) Vital Signs Temp Pulse Pulse Resp BP BP Pulse Ox 09/08/25 13:31 72 18 123/69 97 09/08/25 11:30 36.4 C L 84 20 113/70 96 O2 Del Method 09/08/25 13:31 Room Air 09/08/25 11:30 Room Air Code Status & VTE Plan Code Status DNR/DNI VTE Prophylaxis Plan VTE Prophylaxis will be ordered: Yes PG Care Time/CCT Total # of Minutes Spent Total Time Spent with Patient: Total time spent is greater than 50% in coordination of care (as documented) at patient's floor/unit and/or counseling patient: Coding Level of Care Code 48397 INT INP/OBS CARE 2/55MIN Diagnoses Acute lower urinary tract infection N39.0 Intentional self-harm X83.8XXA Nonadherence to medical treatment Z91.199 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
[2025-09-08] MEDS: Patient's HEIGHT &/or WEIGHT Needed STA (16:39)
[2025-09-08] MEDS: ENOXAPARIN INJ 30 MG/0.3 ML SYR SQ SCH (21:36)
[2025-09-08 23:37] LABS: Hematocrit (blood only) 42.3 % (42.0-52.0); Hemoglobin 13.6 g/dL (14.0-18.0); Immature Granulocytes # (auto) 0.05 K/uL (0.01-0.20); Immature Granulocytes % (auto) 0.3 %; Mean Corpuscular Hemoglobin 28.3 pg (25.0-34.0); Mean Corpuscular Volume 87.9 fL (80.0-100.0); Platelet Count 175 K/uL (130-400); RDW Standard Deviation 47.7 fL (36.4-46.3); Red Blood Count 4.81 M/uL (4.70-6.10); White Blood Count 17.67 K/ul (4.8-10.8)
[2025-09-09] MEDS: LEVOTHYROXINE SODIUM 137 MCG TABLET PO SCH (05:50)
--- NOTE | 2025-09-09 07:59 | Hospitalist Progress Note ---
Date of Service September 09, 2025 Assessment & Plan (1) Acute lower urinary tract infection: (2) Intentional self-harm: (3) Nonadherence to medical treatment: (4) Schizophrenia: (5) Hypokalemia: (6) Superficial laceration of forearm: Plan In summary this is a 69-year-old male who presents after attempted self-[facility] at the [facility] found to have an acute urinary tract infection #Acute bacterial cystitis without hemorrhage Leukocytosis of 18,000 with urine concerning for infection based on microscopy; without overt symptoms other than polyuria however the patient's altered behavior may be in part related to the ongoing infection Continue Rocephin 2 g IV daily Urine cultures with E. coli growth; sensitivities pending - Blood cultures without growth at 24 hours #Suicidal ideation // Schizophrenia vs Schizoaffective disorder Patient self discontinued the majority of their medications at their [facility]; this may have also been up overall and precipitating their altered behavior and suicide attempt Psychiatry consulted - Superficial dressing of the left wrist, change when strikethrough is noted #Hypokalemic Remains diminished; additional replacement ordered 09/09 - Reassess 09/10 The remainder the patient's chronic medical conditions are stable and do not require adjustment to their outpatient regimen at this time DVT PPx: Continue Lovenox 40 mg SQ daily Admission and Anticipated Discharge Date Admission Date: September 08, 2025 Subjective Mr. Rapp is a 69-year-old male whose active medical conditions include schizoaffective disorder, hypothyroidism, slow transit constipation among other chronic medical conditions who presented to the [facility] [address] on 09/08 after an episode of self-inflicted injury in a proposed suicide attempt. No acute overnight events; this morning endorses some nausea associated with medication administration, otherwise has no concerns or complaints Review of Systems Review of Systems: Review of constitutional, cardiovascular, pulmonary, genitourinary, gastrointestinal, neurologic, psychiatric systems was unremarkable except for pertinent positive and negative findings discussed above Physical Exam Physical Exam: General: Elderly male in no acute distress Vital Signs: Reviewed HEENT: Tacky mucous membranes; pupils equally round reactive to light, extraocular motion intact Pulmonary: Symmetric chest wall excursion without restriction; clear to auscultation bilaterally Cardiovascular: Regular rate and rhythm with right radial pulse 2+ Gastrointestinal: Soft, nondistended, nontender throughout Genitourinary: No notable suprapubic tenderness Neurologic: Cranial nerves II through XII grossly intact; no discernible focal weakness no paresthesia Psychiatric: Alert and oriented to self, place, time Skin: Left wrist with superficial linear lacerations, healing as expected Results & Data Results & Data Vital Signs (Past 12 Hours) Vital Signs Temp Pulse Pulse Resp BP BP Pulse Ox 09/09/25 06:55 36.7 C 75 16 116/68 95 09/08/25 22:51 36.5 C 71 16 104/68 95 09/08/25 22:04 70 16 126/80 99 09/08/25 20:30 36.6 C 69 16 126/80 99 O2 Del Method 09/09/25 06:55 Room Air 09/08/25 22:51 Room Air 09/08/25 22:04 Room Air 09/08/25 20:30 Room Air Laboratory Results Potassium 2.9 Urine culture yielding E. 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
[2025-09-09 08:03] LABS: Hematocrit (blood only) 40.4 % (42.0-52.0); Hemoglobin 13.0 g/dL (14.0-18.0); Immature Granulocytes # (auto) 0.05 K/uL (0.01-0.20); Immature Granulocytes % (auto) 0.4 %; Mean Corpuscular Hemoglobin 28.3 pg (25.0-34.0); Mean Corpuscular Volume 87.8 fL (80.0-100.0); Platelet Count 156 K/uL (130-400); RDW Standard Deviation 47.3 fL (36.4-46.3); Red Blood Count 4.60 M/uL (4.70-6.10); White Blood Count 13.32 K/ul (4.8-10.8)
[2025-09-09 08:18] LABS: Albumin Level 4.0 gm/dl (3.4-5.0); Anion Gap 7.0 (3-11); Blood Urea Nitrogen 23.0 mg/dl (6-23); Calcium 9.1 mg/dl (8.6-10.3); Carbon Dioxide 36.0 mmol/L (21-32); Chloride 96.0 mmol/L (98-107); Creatinine Clr Calc Pharmacy 58.3 ml/min; Glucose 96.0 mg/dl (70-99(Fasting)); Potassium 2.9 mmol/L (3.5-5.1); Sodium 139.0 mmol/L (136-145)
[2025-09-09] MEDS: POLYETHYLENE (MIRALAX) 17 GM PACK PO SCH (08:27)
[2025-09-09] MEDS: LINACLOTIDE 145 MCG CAPSULE PO SCH (08:28)
[2025-09-09] MEDS: SERTRALINE HCL 50 MG TABLET PO SCH (08:28)
[2025-09-09] MEDS: POTASSIUM CHLORIDE CRTAB 20 MEQ TABCR PO SCH (08:40)
--- NOTE | 2025-09-09 09:56 | Psychiatric Consultation ---
Date of Consultation September 10, 2025 Impression / Recommendations Impression Patient with known hx of Schizoaffective disorder, treatment resistant. Treated with CLozapine. I visited the patient yesterday briefly and we declined to engage in conversation, politely asked me come another day. Today, he was opened to the visit and readily answering questions. He presented calm, with good eye contact, and able to answer questions in a goal directed manner. He was oriented to person, date, place. Reported he has been coughing and I observed him coughing during the encounter. Denied pain or distress. Denied side effects from medications. Appears to be responding well to re-inititation of CLozapine. Denied side effects despite starting at higher dose. He is well oriented and there is no evidence of dangerous behavior. Psychosis appears well controlled. (1) Severe protein-calorie malnutrition: Plan 09/10/25: Continue current medications proactively use a stool softener likedocusate, combined with an osmotic laxative (e.g.,polyethylene glycol) to prevent Clozapine induced constipation 09/09/25 If pateint has been off CLozapine for longer than 3 days, will need to start at 25mg and taper up by adding 25mg daily until reaching his regular dose. CBC to monitor ANC (currently elevated due to infection) Psych History Identifying Data VALERIA WREN is a 69-year-old male who presents after attempted self-harm at the [facility] found to have an acute urinary tract infection. Psychiatry consulted due to an episode of self-inflicted injury in an apparent suicide attempt. Chief Complaint "I am doing well, how about yourself?". History of Present Illness 69 yo with history of schizoaffective disorder and cognitive impairment with increased delusions about having excessive blood leading to self injurious behavior. DIfferential includes worsening of psychosis due to lack of adherence to clozapine vs delirium from UTI. Patient reportedly off clozapine for approx 7 days Allergies Allergy/AdvReac Type Severity Reaction Status Date / Time No Known Allergies Allergy none Verified 03/24/24 14:14 Home Medications Medication Instructions Recorded Confirmed Type omeprazole 20 mg capsule,delayed 20 mg PO BID 09/06/18 07/14/25 History release hydroxyzine pamoate 25 mg capsule 25 mg PO HS #5 caps 01/01/20 07/14/25 Rx cyanocobalamin (vitamin B-12) 1,000 mcg PO DAILY #90 tabs 07/03/23 07/14/25 Rx 1,000 mcg tablet (Vitamin B-12) clozapine 100 mg tablet 100 mg PO BID 03/24/24 07/14/25 History clozapine 200 mg tablet 200 mg PO HS 03/24/24 07/14/25 History cholecalciferol (vitamin D3) 50 2,000 unit PO QPM 04/20/25 07/14/25 History mcg (2,000 unit) tablet (Vitamin D3) ferrous sulfate 325 mg (65 mg 325 mg PO QAM 04/20/25 07/14/25 History iron) tablet levothyroxine 137 mcg tablet 137 mcg PO QAM 04/20/25 07/14/25 History calcium carbonate (Calcium 600) 600 mg PO QAM 07/13/25 07/14/25 History sertraline 50 mg tablet 50 mg PO DAILY 07/13/25 07/14/25 History acetaminophen 325 mg tablet 325 - 650 mg PO Q6 PRN pain. 07/14/25 07/14/25 History cholecalciferol (vitamin D3) 25 25 mcg PO QPM 07/14/25 07/14/25 History mcg (1,000 unit) tablet (Vitamin D3) eucalyptus-menthol oral mucosal 1 john paul mucous membrane Q4 PRN Cough 07/14/25 07/14/25 History lozenge linaclotide 290 mcg capsule 290 mcg PO DAILY #30 caps 07/22/25 Rx (Linzess) polyethylene glycol 3350 17 17 g PO DAILY #119 grams 07/22/25 Rx gram/dose oral powder (Miralax) sennosides 8.6 mg tablet (Senna 8.6 mg PO QPM #30 tabs 07/22/25 Rx Lax) sodium phosphates 19 gram-7 118 ml AR DAILY PRN constipation 07/22/25 Rx gram/118 mL enema (Fleet Enema) #133 mL Patient History Medical History History of colonic polyps Impacted cerumen of both ears Left buttock abscess Stercoral colitis Fecal impaction Acute metabolic encephalopathy Abnormal brain MRI Acute urinary retention Rhinovirus infection Seizure disorder taken off dilantin History of colon polyps Hiatal hernia History of panic attacks Fracture of femoral neck, left Surgical History History of incision and drainage (07/16/25) Dr. Silvestre buttock abscess History of colonoscopy History of repair of hip fracture left History of esophagogastroduodenoscopy (EGD) Family History Mother Family history of diabetes mellitus Other Family history non-contributory Denies family history of Ovarian cancer Prostate cancer Myocardial infarction Breast cancer Colorectal cancer Social History (Updated 09/08/25 @ 14:06 by Stu Roberts DO) Smoking Status: Former smoker Tobacco Type: Cigarettes Age Started Using Tobacco: 18; packs per day: 0.25; Cigarettes Per Day: 1-3 a week; Second Hand Exposure: No; Do You Dip or Chew Tobacco: No; Hx Alcohol Use: No Hx Substance Use: No Preferred Language: Danish Communication Ability: Effective Visual Impairment: No Limitations Hearing Ability: Normal Investment Fund Manager Required: No Beliefs That Will Affect Care: None Current Living Situation: Personal Care Facility Current Living Situation Comment: [facility] Feels Safe at Home: Yes Childhood Exposure to Second-Hand Smoke: Yes Dental Care, Regularly: No Physical Activity Frequency: 3-4 Times per Week Seatbelt Use: always Sunscreen Use: No Assistive Devices: None Physical Exam Vital Signs (Past 24 Hours): Last Vital Signs Temp 36.7 C 09/09/25 06:55 Pulse 75 09/09/25 06:55 Resp 16 09/09/25 06:55 BP 116/68 09/09/25 06:55 Pulse Ox 95 09/09/25 06:55 O2 Del Method Room Air 09/09/25 09:33 Results & Data (PSY) Diagnostic Findings Schizoaffective disorder Medications Administered Clozapine (Clozapine 100 Mg Tab) 100 mg PO BID@0800,2000 [facility]; Protocol Stop: 10/08/25 19:59 Last Admin: 09/09/25 08:28 Dose: 100 mg Documented By: Admin: 09/08/25 21:36 Dose: 100 mg Documented By: VIDAL Clozapine (Clozapine 100 Mg Tab) 200 mg PO DAILY@2200 [facility] Stop: 10/08/25 21:59 Last Admin: 09/08/25 22:40 Dose: 200 mg Documented By: WILD Enoxaparin Sodium (Enoxaparin Inj 30 Mg/0.3 Ml Syr) 30 mg SQ Q24H BAUDILIO Stop: 10/08/25 20:59 Last Admin: 09/08/25 21:36 Dose: 30 mg Documented By: VIDAL Levothyroxine Sodium (Levothyroxine Sodium 137 Mcg Tablet) 137 mcg PO DAILYBB BAUDILIO Stop: 10/09/25 06:29 Last Admin: 09/09/25 05:50 Dose: 137 mcg Documented By: WILD Linaclotide (Linaclotide 145 Mcg Capsule) 290 mcg PO DAILY BAUDILIO Stop: 10/09/25 08:59 Last Admin: 09/09/25 08:28 Dose: 290 mcg Documented By: EWA Pantoprazole Sodium (Pantoprazole 40 Mg Tab) 40 mg PO BID BAUDILIO Stop: 10/08/25 20:59 Last Admin: 09/09/25 08:28 Dose: 40 mg Documented By: Admin: 09/08/25 21:36 Dose: 40 mg Documented By: VIDAL Polyethylene Glycol (Polyethylene (Miralax) 17 Gm Pack) 17 gm PO DAILY BAUDILIO Stop: 10/09/25 08:59 Last Admin: 09/09/25 08:27 Dose: Not Given Documented By: EWA Potassium Chloride (Potassium Chloride Crtab 20 Meq Tabcr) 40 meq PO TID BAUDILIO Stop: 09/09/25 21:01 Last Admin: 09/09/25 08:40 Dose: 40 meq Documented By: EWA Sertraline HCl (Sertraline Hcl 50 Mg Tablet) 50 mg PO DAILY BAUDILIO Stop: 10/09/25 08:59 Last Admin: 09/09/25 08:28 Dose: 50 mg Documented By: EWA [place] [address] IN/OBS CONSULT LVL 4,60M Patient Type New Medical Decision Making Moderate Complexity Diagnoses Severe protein-calorie malnutrition E43 Time Spent (min) 60
[2025-09-09] MEDS: cefTRIAXone SODIUM 2,000 MG/50 ML BAG IV SCH (11:28)
[2025-09-09] MEDS: CALCIUM CARBONATE 500 MG CHEWABLE TAB PO PRN (18:30)
[2025-09-09] MEDS: PANTOprazole 40 MG/10 ML SYR IV SCH (20:20)
[2025-09-09] MEDS: ONDANSETRON INJ 2 MG/ML 2 ML VIAL IV PRN (20:20)
[2025-09-10] MEDS: POTASSIUM CHLORIDE CRTAB 20 MEQ TABCR PO ONE (05:39)
[2025-09-10 07:20] LABS: Hematocrit (blood only) 41.0 % (42.0-52.0); Hemoglobin 13.5 g/dL (14.0-18.0); Immature Granulocytes # (auto) 0.12 K/uL (0.01-0.20); Immature Granulocytes % (auto) 0.7 %; Mean Corpuscular Hemoglobin 29.0 pg (25.0-34.0); Mean Corpuscular Volume 88.2 fL (80.0-100.0); Platelet Count 179 K/uL (130-400); RDW Standard Deviation 46.7 fL (36.4-46.3); Red Blood Count 4.65 M/uL (4.70-6.10); White Blood Count 17.50 K/ul (4.8-10.8)
[2025-09-10 07:52] LABS: Albumin Level 4.0 gm/dl (3.4-5.0); Anion Gap 9.0 (3-11); Blood Urea Nitrogen 23.0 mg/dl (6-23); Calcium 8.8 mg/dl (8.6-10.3); Carbon Dioxide 30.0 mmol/L (21-32); Chloride 96.0 mmol/L (98-107); Creatinine Clr Calc Pharmacy 57.6 ml/min; Glucose 92.0 mg/dl (70-99(Fasting)); Potassium 3.9 mmol/L (3.5-5.1); Sodium 135.0 mmol/L (136-145)
--- NOTE | 2025-09-10 08:12 | Hospitalist Progress Note ---
Date of Service September 10, 2025 Assessment & Plan (1) Acute lower urinary tract infection: (2) Intentional self-harm: (3) Nonadherence to medical treatment: (4) Schizophrenia: (5) Hypokalemia: (6) Superficial laceration of forearm: Plan In summary this is a 69-year-old male who presents after [facility] found to have an acute urinary tract infection #Acute bacterial cystitis without hemorrhage Undulating leukocytosis without overt symptoms other than polyuria however the patient's altered behavior may be in part related to the ongoing infection Discontinue Rocephin 2 g IV daily - Start Zosyn 4.5 mg IV every 8 hours Urine cultures with ESBL E. coli - Blood cultures without growth at 24 hours #Emesis Episode of small volume emesis on 09/09 that was reported to have coffee ground substance; without significant change in hemodynamics or hemoglobin, suspect this was normal gastric secretions noted rather than true coffee ground emesis - Continue pantoprazole 40 mg IV twice daily #Suicidal ideation // Schizophrenia vs Schizoaffective disorder Patient self discontinued the majority of their [facility]; this may have also been up overall and precipitating their altered behavior and suicide attempt Psychiatry consulted - Superficial dressing of the left wrist, change when strikethrough is noted #Hypokalemic Improved, monitor The remainder the patient's chronic medical conditions are stable and do not require adjustment to their outpatient regimen at this time DVT PPx: Continue Lovenox 40 mg SQ daily Admission and Anticipated Discharge Date Admission Date: September 08, 2025 Subjective Mr. Rapp is a 69-year-old male whose active medical conditions include schizoaffective disorder, hypothyroidism, slow transit constipation among other chronic medical conditions who presented to the [facility] on 09/08 after an episode of self-inflicted injury in a proposed suicide attempt. No acute overnight events; this morning endorses some nausea associated with medication administration, otherwise has no concerns or complaints Review of Systems Review of Systems: Review of constitutional, cardiovascular, pulmonary, genitourinary, gastrointestinal, neurologic, psychiatric systems was unremarkable except for pertinent positive and negative findings discussed above Physical Exam Physical Exam: General: Elderly male in no acute distress Vital Signs: Reviewed HEENT: Tacky mucous membranes; pupils equally round reactive to light, extraocular motion intact Pulmonary: Symmetric chest wall excursion without restriction; clear to auscultation bilaterally Cardiovascular: Regular rate and rhythm with right radial pulse 2+ Gastrointestinal: Soft, nondistended, nontender throughout Genitourinary: No notable suprapubic tenderness Neurologic: Cranial nerves II through XII grossly intact; no discernible focal weakness no paresthesia Psychiatric: Alert and oriented to self, place, time Skin: Left wrist with superficial linear lacerations, healing as expected Results & Data Results & Data Vital Signs (Past 12 Hours) Vital Signs Temp Pulse Resp BP Pulse Ox O2 Del Method 09/10/25 07:07 36.6 C 83 16 112/74 94 Room Air 09/09/25 23:00 36.7 C 82 17 131/74 94 Room Air 09/09/25 20:10 36.6 C 85 17 113/72 95 Room Air Laboratory Results Urine culture yielding ESBL E. 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
[2025-09-10] MEDS: 4.5GM X1 IV STA (09:30)
[2025-09-10] MEDS: PIPERACILLIN/TAZOBACTAM 4.5 GM/100 ML BAG IV SCH (14:45)
--- NOTE | 2025-09-10 22:06 | Electrocardiogram Report ---
Test Reason : Blood Pressure : */* mmHG Vent. Rate : 87 BPM Atrial Rate : 87 BPM P-R Int : 80 ms QRS Dur : 72 ms QT Int : 384 ms P-R-T Axes : 79 60 81 degrees QTcB Int : 462 ms Sinus rhythm with short IL with Premature atrial complexes Nonspecific T wave abnormality Abnormal ECG When compared with ECG of 13-Jul-2025 19:48, Premature atrial complexes are now Present IL interval has decreased Nonspecific T wave abnormality has replaced inverted T waves in Anterior leads Confirmed by Jeovanny Ashford ([id number]) on 09/10/2025 10:05:33 PM Referred By: REFERRED SELF Confirmed By: Jeovanny Ashford
[2025-09-11 06:56] LABS: Hematocrit (blood only) 39.0 % (42.0-52.0); Hemoglobin 12.6 g/dL (14.0-18.0); Immature Granulocytes # (auto) 0.05 K/uL (0.01-0.20); Immature Granulocytes % (auto) 0.4 %; Mean Corpuscular Hemoglobin 28.6 pg (25.0-34.0); Mean Corpuscular Volume 88.6 fL (80.0-100.0); Platelet Count 161 K/uL (130-400); RDW Standard Deviation 46.8 fL (36.4-46.3); Red Blood Count 4.40 M/uL (4.70-6.10); White Blood Count 11.27 K/ul (4.8-10.8)
[2025-09-11 07:30] LABS: Albumin Level 3.8 gm/dl (3.4-5.0); Anion Gap 8.0 (3-11); Blood Urea Nitrogen 21.0 mg/dl (6-23); Calcium 8.4 mg/dl (8.6-10.3); Carbon Dioxide 31.0 mmol/L (21-32); Chloride 100.0 mmol/L (98-107); Creatinine Clr Calc Pharmacy 51.8 ml/min; Glucose 82.0 mg/dl (70-99(Fasting)); Potassium 3.5 mmol/L (3.5-5.1); Sodium 139.0 mmol/L (136-145)
--- NOTE | 2025-09-11 07:59 | Hospitalist Progress Note ---
Date of Service September 11, 2025 Assessment & Plan (1) Acute lower urinary tract infection: (2) Intentional self-harm: (3) Nonadherence to medical treatment: (4) Hypokalemia: (5) Superficial laceration of forearm: (6) Schizoaffective disorder: (7) Delusional thoughts: Plan In summary this is a 69-year-old male who presents after attempted self-harm at the [facility] found to have an acute urinary tract infection #Acute bacterial cystitis without hemorrhage Undulating leukocytosis without overt symptoms other than polyuria however the patient's altered behavior may be in part related to the ongoing infection Discontinued Rocephin 2 g IV daily - Continue Zosyn 4.5 mg IV every 8 hours, started 09/10 Urine cultures with ESBL E. coli - Blood cultures without growth at 48 hours - Infectious disease consultation 09/11 for disposition recommendations #Emesis Episode of small volume emesis on 09/09 that was reported to have coffee ground substance; without significant change in hemodynamics or hemoglobin, suspect this was normal gastric secretions noted rather than true coffee ground emesis - Continue pantoprazole 40 mg IV twice daily, transition to p.o. 09/12 #Suicidal ideation // Schizoaffective disorder Patient self discontinued the majority of their medications at their [facility]; this may have also been up overall and precipitating their altered behavior and suicide attempt Psychiatry consulted - Superficial dressing of the left wrist, change when strikethrough is noted #Hypokalemic Resolved The remainder the patient's chronic medical conditions are stable and do not require adjustment to their outpatient regimen at this time DVT PPx: Continue Lovenox 40 mg SQ daily Admission and Anticipated Discharge Date Admission Date: September 08, 2025 Subjective Mr. Rapp is a 69-year-old male whose active medical conditions include schizoaffective disorder, hypothyroidism, slow transit constipation among other chronic medical conditions who presented to the [facility] on 09/08 after an episode of self-inflicted injury in a proposed suicide attempt. No acute overnight events Review of Systems Review of Systems: Review of constitutional, cardiovascular, pulmonary, genitourinary, gastrointestinal, neurologic, psychiatric systems was unremarkable except for pertinent positive and negative findings discussed above Physical Exam Physical Exam: General: Elderly male in no acute distress Vital Signs: Reviewed HEENT: Tacky mucous membranes; pupils equally round reactive to light, extraocular motion intact Pulmonary: Symmetric chest wall excursion without restriction; clear to auscultation bilaterally Cardiovascular: Regular rate and rhythm with right radial pulse 2+ Gastrointestinal: Soft, nondistended, nontender throughout Genitourinary: No notable suprapubic tenderness Neurologic: Cranial nerves II through XII grossly intact; no discernible focal weakness no paresthesia Psychiatric: Alert and oriented to self, place, time Skin: Left wrist with superficial linear lacerations, healing as expected Results & Data Results & Data Vital Signs (Past 12 Hours) Vital Signs Temp Pulse Resp BP Pulse Ox O2 Del Method 09/10/25 22:55 36.3 C L 78 18 103/67 95 Room Air 09/10/25 20:35 Room Air PG Care Time/CCT Total # of Minutes Spent Total Time Spent with Patient: Total time spent is greater than 50% in coordination of care (as documented) at patient's floor/unit and/or counseling patient: Coding Level of Care Code 43964 SUB INP/OBS CARE 2/35MIN Diagnoses Acute lower urinary tract infection N39.0 Intentional self-harm X83.8XXA Nonadherence to medical treatment Z91.199 Hypokalemia E87.6 Superficial laceration of forearm S51.819A Schizoaffective disorder, depressive type F25.1 Schizoaffective disorder type: depressive Delusional thoughts F22 (6) Schizoaffective disorder Schizoaffective disorder type: depressive Qualified Code(s): F25.1 - Schizoaffective disorder, depressive type
--- NOTE | 2025-09-11 15:56 | Psychiatric Progress Note ---
Date of Service September 11, 2025 Impression / Recommendations Impression Diagnostically consistent with history of schizoaffective disorder on clozapine as well as likely cognitive impairment with increased delusions about having excessive blood leading to suicide attempt vs delusional driven cut to his wrist vs 2/2 possible delirium from UTI. He recently self-discontinued his clozapine for about 7 days so certainly possible he experienced some abrupt clozapine- withdrawal psychosis versus increased psychosis in setting of recent medication adherence vs from UTI. Unclear if his garbled speech, confusion and loosening of associations is related to delirium vs increased psychosis vs cognitive impairment process. Given no overt signs of responding to internal stimuli nor identified hallucinations at times of my assessment suspect more likely co- occurring cognitive/dementia component vs delirium. Seems to be tolerating ongoing clozapine given it was restarted at his same dose in the days leading up to hospital admission and he's been continued on this dose so would no advise to reduce dose at this point. Suspect he may require geriatric psychiatry referral given recent abrupt medication non-adherence and disorganized vs suicidal behavior. Encouragingly his personal [facility], will take him back after discharge and I feel that stabilization via geriatric psychiatry would be beneficial to continue to monitor his response to clozapine. Psychiatry liason to attempt further family collateral to get a better sense of his baseline. Overall, I spent a total of 60 minutes with this case including review of chart records, review of labwork, direct evaluation of the patient at bedside, counseling the patient, discussion of the patient with the Nurse and with the hospitalist provider, discussion with the psychiatric liason during clinical rounds and documentation in the electronic health record. (1) Schizoaffective disorder: (2) Superficial laceration of forearm: (3) Acute UTI (urinary tract infection): Plan -Continue current psychiatric medication (clozapine and sertraline). ANC reviewed. -Psych liason to get further collateral from sister or brother -Plan for likely geriatric psychiatry referral once medically stable (currently being treated for UTI) Interval History Chief Complaint "[]". Subjective Subjective Patient was seen & assessed and interval progress reviewed. Today Satinder is not oriented to place (he thinks he is at [facility]) he, is oriented to city, month and year. He agrees he had a suicide attempt but then states he cut himself because "there was too much blood in my body". He has significant loosened associations and describing how he came to this conclusion referencing at 1 point a bicycle and put potentially a sense of fullness in his body. Asked what he thought would happen by cutting his wrist his speech is garbled and so it is unclear if he thought there was a possibility of versus he was acting on a delusion about a belief he needed to drain blood. I asked what he likes about being alive he states "all of them" and then seems to reference the name of some local [employer] restaurant versus possibly talking about the mall. He is agreeable to our team getting collateral information from his sister or brother. He then tells me "okay thank you by" as a way of politely dismissing me. Physical Exam Vital Signs (Past 24 Hours) Last Vital Signs Temp 36.7 C 09/11/25 14:46 Pulse 81 09/11/25 14:46 Resp 14 09/11/25 14:46 BP 98/64 L 09/11/25 14:46 Pulse Ox 94 09/11/25 14:46 O2 Del Method Room Air 09/11/25 14:46 Results & Data ([facility]) Laboratory Results Laboratory Results - last 24 hr 09/11/25 05:47 WBC 11.27 H RBC 4.40 L Hgb 12.6 L Hct 39.0 L MCV 88.6 MCH 28.6 MCHC 32.3 RDW Std Deviation 46.8 H RDW Coeff of Stefani 14.6 H Plt Count 161 MPV 12.0 Immature Gran % (Auto) 0.4 Neut % (Auto) 71.7 Lymph % (Auto) 18.8 [place] % (Auto) 6.9 Eos % (Auto) 1.6 Baso % (Auto) 0.6 Neut # (Auto) 8.07 H Lymph # (Auto) 2.12 [place] # (Auto) 0.78 H Eos # (Auto) 0.18 Baso # (Auto) 0.07 Immature Gran # (Auto) 0.05 Sodium 139 Potassium 3.5 Chloride 100 Carbon Dioxide 31 Anion Gap 8 BUN 21 Creatinine 0.99 Est Cr Clr Drug Dosing 51.8 eGFR 81.44 BUN/Creatinine Ratio 21.2 H Glucose 82 Calcium 8.4 L Phosphorus 3.1 Albumin 3.8 Current Inpatient Medications Current Inpatient Medications: Current Inpatient Medications Calcium Carbonate (Calcium Carbonate 500 Mg Chewable Tab) 1,500 mg PO Q6H PRN PRN Reason: Indigestion Stop: 10/09/25 18:18 Last Admin: 09/09/25 18:30 Dose: 1,500 mg Clozapine (Clozapine 100 Mg Tab) 100 mg PO BID@0800,2000 [facility]; Protocol Stop: 10/08/25 19:59 Last Admin: 09/11/25 10:16 Dose: 100 mg Clozapine (Clozapine 100 Mg Tab) 200 mg PO DAILY@2200 [facility] Stop: 10/08/25 21:59 Last Admin: 09/10/25 21:39 Dose: 200 mg Enoxaparin Sodium (Enoxaparin Inj 30 Mg/0.3 Ml Syr) 30 mg SQ Q24H [facility] Stop: 10/08/25 20:59 Last Admin: 09/10/25 21:39 Dose: 30 mg Pantoprazole Sodium (Protonix) 40 mg in 10 mls @ 5 mls/min IV BID [facility] Stop: 10/09/25 20:59 Last Admin: 09/11/25 10:17 Dose: 5 mls/min Piperacillin Sod/Tazobactam Sod (Zosyn) 4.5 gm in 100 mls @ 25 mls/hr IV Q8H [facility]; Protocol Stop: 09/20/25 13:59 Last Admin: 09/11/25 14:10 Dose: 25 mls/hr Levothyroxine Sodium (Levothyroxine Sodium 137 Mcg Tablet) [facility] Stop: 10/09/25 06:29 Last Admin: 09/11/25 05:32 Dose: 137 mcg Linaclotide (Linaclotide 145 Mcg Capsule) 290 mcg PO DAILY [facility] Stop: 10/09/25 08:59 Last Admin: 09/11/25 10:16 Dose: 290 mcg Ondansetron HCl (Ondansetron Inj 2 Mg/Ml 2 Ml Vial) 4 mg IV Q6H PRN PRN Reason: Nausea And Vomiting Stop: 10/09/25 20:08 Last Admin: 09/09/25 20:20 Dose: 4 mg Pantoprazole Sodium (Pantoprazole 40 Mg Tab) 40 mg PO BID [facility] Stop: 10/08/25 20:59 Last Admin: 09/09/25 08:28 Dose: 40 mg Polyethylene Glycol (Polyethylene (Miralax) 17 Gm Pack) 17 gm PO DAILY [facility] Stop: 10/09/25 08:59 Last Admin: 09/11/25 13:06 Dose: 17 gm Sertraline HCl (Sertraline Hcl 50 Mg Tablet) 50 mg PO DAILY [facility] Stop: 10/09/25 08:59 Last Admin: 09/11/25 10:16 Dose: 50 mg (1) Schizoaffective disorder Schizoaffective disorder type: depressive Qualified Code(s): F25.1 - Schizo affective disorder, depressive type
--- NOTE | 2025-09-12 07:33 | Hospitalist Progress Note ---
Date of Service September 12, 2025 Assessment & Plan (1) Acute lower urinary tract infection: (2) Intentional self-harm: (3) Nonadherence to medical treatment: (4) Hypokalemia: (5) Superficial laceration of forearm: (6) Schizoaffective disorder: (7) Delusional thoughts: Plan In summary this is a 69-year-old male who presents after attempted self-harm at the [facility]prison found to have an acute urinary tract infection #Acute bacterial cystitis without hemorrhage Undulating leukocytosis without overt symptoms other than polyuria however the patient's altered behavior may be in part related to the ongoing infection Discontinued Rocephin 2 g IV daily - Continue Zosyn 4.5 mg IV every 8 hours, started 09/10 with anticipated duration of antibiotics through 09/19 for total 10 day course of effective therapy based on sensitivities Urine cultures with ESBL E. coli - Blood cultures without growth at 48 hours - Infectious disease consultation 09/11 for disposition recommendations #Emesis Episode of small volume emesis on 09/09 that was reported to have coffee ground substance; without significant change in hemodynamics or hemoglobin, suspect this was normal gastric secretions noted rather than true coffee ground emesis - Continue pantoprazole 40 mg p.o. twice daily #Suicidal ideation // Schizoaffective disorder Patient self discontinued the majority of their medications at their personal- prison; this may have also been up overall and precipitating their altered behavior and suicide attempt Psychiatry consulted; recommend discharge to an inpatient geriatric psychiatry service, unfortunately will not be able to discharge to such a facility with IV antibiotics, thus delaying the patient's discharge significantly - Superficial dressing of the left wrist, change when strikethrough is noted #Hypokalemic Recurrent, continue with daily supplementation The remainder the patient's chronic medical conditions are stable and do not require adjustment to their outpatient regimen at this time DVT PPx: Continue Lovenox 40 mg SQ daily Admission and Anticipated Discharge Date Admission Date: September 08, 2025 Subjective Mr. Rapp is a 69-year-old male whose active medical conditions include schizoaffective disorder, hypothyroidism, slow transit constipation among other chronic medical conditions who presented to the [facility] on 09/08 after an episode of self-inflicted injury in a proposed suicide attempt. No acute overnight events Review of Systems Review of Systems: Review of constitutional, cardiovascular, pulmonary, genitourinary, gastrointestinal, neurologic, psychiatric systems was unremarkable except for pertinent positive and negative findings discussed above Physical Exam Physical Exam: General: Elderly male in no acute distress Vital Signs: Reviewed HEENT: Tacky mucous membranes; pupils equally round reactive to light, extraocular motion intact Pulmonary: Symmetric chest wall excursion without restriction; clear to auscultation bilaterally Cardiovascular: Regular rate and rhythm with right radial pulse 2+ Gastrointestinal: Soft, nondistended, nontender throughout Genitourinary: No notable suprapubic tenderness Neurologic: Cranial nerves II through XII grossly intact; no discernible focal weakness no paresthesia Psychiatric: Alert and oriented to self, place, time Skin: Left wrist with superficial linear lacerations, healing as expected Results & Data Results & Data Vital Signs (Past 12 Hours) Vital Signs Temp Pulse Resp BP Pulse Ox O2 Del Method 09/12/25 07:17 36.5 C 74 16 115/71 98 Room Air 09/11/25 23:33 36.7 C 79 18 112/75 95 Room Air 09/11/25 21:06 Room Air PG Care Time/CCT Total # of Minutes Spent Total Time Spent with Patient: Total time spent is greater than 50% in coordination of care (as documented) at patient's floor/unit and/or counseling patient: Coding Level of Care Code 91301 SUB INP/OBS CARE 2/35MIN Diagnoses Acute lower urinary tract infection N39.0 Intentional self-harm X83.8XXA Nonadherence to medical treatment Z91.199 Hypokalemia E87.6 Superficial laceration of forearm S51.819A Schizoaffective disorder, depressive type F25.1 Schizoaffective disorder type: depressive Delusional thoughts F22 (6) Schizoaffective disorder Schizoaffective disorder type: depressive Qualified Code(s): F25.1 - Schizoaffective disorder, depressive type
[2025-09-12 07:53] LABS: Hematocrit (blood only) 41.6 % (42.0-52.0); Hemoglobin 13.2 g/dL (14.0-18.0); Mean Corpuscular Hemoglobin 28.8 pg (25.0-34.0); Mean Corpuscular Volume 90.6 fL (80.0-100.0); Platelet Count 182 K/uL (130-400); RDW Standard Deviation 48.9 fL (36.4-46.3); Red Blood Count 4.59 M/uL (4.70-6.10); White Blood Count 9.52 K/ul (4.8-10.8)
[2025-09-12 08:09] LABS: Albumin Level 3.9 gm/dl (3.4-5.0); Anion Gap 7.0 (3-11); Blood Urea Nitrogen 13.0 mg/dl (6-23); Calcium 8.2 mg/dl (8.6-10.3); Carbon Dioxide 32.0 mmol/L (21-32); Chloride 101.0 mmol/L (98-107); Creatinine Clr Calc Pharmacy 49.3 ml/min; Glucose 105.0 mg/dl (70-99(Fasting)); Potassium 2.9 mmol/L (3.5-5.1); Sodium 140.0 mmol/L (136-145)
[2025-09-12] MEDS: POTASSIUM CHLORIDE CRTAB 20 MEQ TABCR PO SCH (08:34)
[2025-09-13 07:30] LABS: Albumin Level 3.9 gm/dl (3.4-5.0); Anion Gap 6.0 (3-11); Blood Urea Nitrogen 13.0 mg/dl (6-23); Calcium 8.2 mg/dl (8.6-10.3); Carbon Dioxide 30.0 mmol/L (21-32); Chloride 106.0 mmol/L (98-107); Creatinine Clr Calc Pharmacy 47.9 ml/min; Glucose 116.0 mg/dl (70-99(Fasting)); Potassium 3.4 mmol/L (3.5-5.1); Sodium 142.0 mmol/L (136-145)
--- NOTE | 2025-09-13 08:17 | Hospitalist Progress Note ---
Date of Service September 13, 2025 Assessment & Plan (1) Acute lower urinary tract infection: (2) Intentional self-harm: (3) Nonadherence to medical treatment: (4) Hypokalemia: (5) Superficial laceration of forearm: (6) Schizoaffective disorder: (7) Delusional thoughts: Plan In summary this is a 69-year-old male who presents after attempted self-harm at the [facility] found to have an acute urinary tract infection #Acute bacterial cystitis without hemorrhage Undulating leukocytosis without overt symptoms other than polyuria however the patient's altered behavior may be in part related to the ongoing infection Discontinued Rocephin 2 g IV daily - Continue Zosyn 4.5 mg IV every 8 hours, started 09/10 with anticipated duration of antibiotics through 09/19 for total 10 day course of effective therapy based on sensitivities Urine cultures with ESBL E. coli - Blood cultures without growth at 72 hours #Emesis Episode of small volume emesis on 09/09 that was reported to have coffee ground substance; without significant change in hemodynamics or hemoglobin, suspect this was normal gastric secretions noted rather than true coffee ground emesis - Continue pantoprazole 40 mg p.o. twice daily #Suicidal ideation // Schizoaffective disorder Patient self discontinued the majority of their medications at their [facility]; this may have also been up overall and precipitating their altered behavior and suicide attempt Psychiatry consulted; recommend discharge to an inpatient geriatric psychiatry service, unfortunately will not be able to discharge to such a facility with IV antibiotics, thus delaying the patient's discharge significantly - Superficial dressing of the left wrist, change when strikethrough is noted #Hypokalemic Recurrent, continue with daily supplementation - Continue Potassium chloride 40 mg p.o. daily - Follow RFP every 2 days to determine need for usp supplementation The remainder the patient's chronic medical conditions are stable and do not require adjustment to their outpatient regimen at this time DVT PPx: Continue Lovenox 40 mg SQ daily Admission and Anticipated Discharge Date Admission Date: September 08, 2025 Subjective Mr. Rapp is a 69-year-old male whose active medical conditions include schizoaffective disorder, hypothyroidism, slow transit constipation among other chronic medical conditions who presented to the [facility] on 09/08 after an episode of self-inflicted injury in a proposed suicide attempt. No acute overnight events Review of Systems Review of Systems: Review of constitutional, cardiovascular, pulmonary, genitourinary, gastrointestinal, neurologic, psychiatric systems was unremarkable except for pertinent positive and negative findings discussed above Physical Exam Physical Exam: General: Elderly male in no acute distress Vital Signs: Reviewed HEENT: Moist mucous membranes; pupils equally round reactive to light, extraocular motion intact Pulmonary: Symmetric chest wall excursion without restriction; clear to auscultation bilaterally Cardiovascular: Regular rate and rhythm with right radial pulse 2+ Gastrointestinal: Soft, nondistended, nontender throughout Genitourinary: No notable suprapubic tenderness Neurologic: Cranial nerves II through XII grossly intact; no discernible focal weakness no paresthesia Psychiatric: Alert and oriented to self, place, time Skin: Left wrist with superficial linear lacerations, healing as expected Results & Data Results & Data Vital Signs (Past 12 Hours) Vital Signs Temp Pulse Resp BP Pulse Ox O2 Del Method 09/13/25 07:09 36.3 C L 76 19 109/70 98 Room Air 09/12/25 22:26 36.4 C L 77 16 99/73 L 99 Room Air PG Care Time/CCT Total # of Minutes Spent Total Time Spent with Patient: Total time spent is greater than 50% in coordination of care (as documented) at patient's floor/unit and/or counseling patient: Coding Level of Care Code 58644 SUB INP/OBS CARE 2/35MIN Diagnoses Acute lower urinary tract infection N39.0 Intentional self-harm X83.8XXA Nonadherence to medical treatment Z91.199 Hypokalemia E87.6 Superficial laceration of forearm S51.819A Schizoaffective disorder, depressive type F25.1 Schizoaffective disorder type: depressive Delusional thoughts F22 (6) Schizoaffective disorder Schizoaffective disorder type: depressive Qualified Code(s): F25.1 - Schizoaffective disorder, depressive type
--- NOTE | 2025-09-13 10:08 | Infectious Disease Consult ---
Date of Consultation September 13, 2025 Assessment & Plan (1) Acute UTI (urinary tract infection): (2) Delusional thoughts: (3) Schizoaffective disorder: Plan This is a 69-year-old male with a past medical history of schizoaffective disorder, paranoid with increased delusions , slow transit constipation who presented to [facility] after attempted self-harm at his personal-shelter. Per report patient also described increased urination. Patient is confused on my exam and is not able to provide a reliable history. He denies fever, chills, sweats, nausea, vomiting, hematuria, dysuria, increased or decreased urination. He does not have a Johnson catheter. On admission afebrile and hemodynamically stable. Labs: WBC 17.67, BUN 23, creatinine 0.88, MRSA nasal screen positive. Urinalysis with greater than 50 WBC, 02 epithelial cells. Blood cultures NGTD. Urine culture ESBL E. coli. He was started on Zosyn for UTI. Infectious disease consulted for ESBL E. coli UTI. Microbiology: 09/08/2025 100 K ESBL E. coli (sensitive to Augmentin, Unasyn, cefoxitin, ertapenem, nitrofurantoin, Zosyn) 09/08/2025 blood culture NGTD Antibiotics: Zosyn 09/10current # ESBL E. coli UTI # Leukocytosis, resolved Discussion: Patient presents with self-harm attempt/suicidal ideation. He is noted to have leukocytosis. Per report he had polyuria on admission. Patient is a poor historian and cannot provide an accurate history to know if he was symptomatic for UTI. Delirium is not a symptom for UTi , but polyuria is consistent with UTI. For now would treat. He is on Zosyn which is sensitive but will transition to definitive therapy with ertapenem. He does not have ev idence of pyelonephritis and is not bacteremic. No systemic symptoms. No flank or suprapubic tenderness on exam Recommendations Plan to treat for total of 7 days for ESBL E. coli cystitis -Discontinued Zosyn ( seemed to have received 2 full days of doses ) -Started ertapenem 1 g IV daily for 5 more days. EOT after 09/17 dose. If patient discharged can complete therapy with nitrofurantoin 100 mg p.o. twice daily. Thank you for this consult. ID will sign off. Melany Ryan MD, MPH Infectious Disease [facility] Call [phone] with questions Consultation Information Consultation was provided via telemedicine using two-way real-time interactive telecommunication between the patient and the telemedicine provider. For the duration of the visit, the provider was performing the assessment from a different facility than the patient. This includesuse of bluetooth stethoscope forauscultationperformed by the telepresenter that the telemedicine provider can hear if described in the physical exam. [employer] contact information: Please call [facility] Call Center [phone]. (Phone Number For Physician Use Only) After establishing a telemedicine visit, patient was: Patient was verified with two unique identifiers Time Spent with Patient: Initial => 55 min History of Present Illness Reason for Consultation: ESBL in urine cx Requesting Physician: Stu Roberts DO Attending Physician: Stu Roberts DO History of Present Illness This is a 69-year-old male with a past medical history of schizoaffective disorder, paranoid with increased delusions , slow transit constipation who presented to [facility] after attempted self-harm at his personal-shelter. Per report patient also described increased urination. Patient is confused on my exam and is not able to provide a reliable history. He denies fever, chills, sweats, nausea, vomiting, hematuria, dysuria, increased or decreased urination. He does not have a Johnson catheter. On admission afebrile and hemodynamically stable. Labs: WBC 17.67, BUN 23, creatinine 0.88, MRSA nasal screen positive. Urinalysis with greater than 50 WBC, 02 epithelial cells. Blood cultures NGTD. Urine culture ESBL E. coli. He was started on Zosyn for UTI. Infectious disease consulted for ESBL E. coli UTI. Allergies Allergy/AdvReac Type Severity Reaction Status Date / Time No Known Allergies Allergy none Verified 03/24/24 14:14 Home Medications Medication Instructions Recorded Confirmed Type omeprazole 20 mg capsule,delayed 20 mg PO BID 09/06/18 07/14/25 History release hydroxyzine pamoate 25 mg capsule 25 mg PO HS #5 caps 01/01/20 07/14/25 Rx cyanocobalamin (vitamin B-12) 1,000 mcg PO DAILY #90 tabs 07/03/23 07/14/25 Rx 1,000 mcg tablet (Vitamin B-12) clozapine 100 mg tablet 100 mg PO BID 03/24/24 07/14/25 History clozapine 200 mg tablet 200 mg PO HS 03/24/24 07/14/25 History cholecalciferol (vitamin D3) 50 2,000 unit PO QPM 04/20/25 07/14/25 History mcg (2,000 unit) tablet (Vitamin D3) ferrous sulfate 325 mg (65 mg 325 mg PO QAM 04/20/25 07/14/25 History iron) tablet levothyroxine 137 mcg tablet 137 mcg PO QAM 04/20/25 07/14/25 History calcium carbonate (Calcium 600) 600 mg PO QAM 07/13/25 07/14/25 History sertraline 50 mg tablet 50 mg PO DAILY 07/13/25 07/14/25 History acetaminophen 325 mg tablet 325 - 650 mg PO Q6 PRN pain. 07/14/25 07/14/25 History cholecalciferol (vitamin D3) 25 25 mcg PO QPM 07/14/25 07/14/25 History mcg (1,000 unit) tablet (Vitamin D3) eucalyptus-menthol oral mucosal 1 john paul mucous membrane Q4 PRN Cough 07/14/25 07/14/25 History lozenge linaclotide 290 mcg capsule 290 mcg PO DAILY #30 caps 07/22/25 Rx (Linzess) polyethylene glycol 3350 17 17 g PO DAILY #119 grams 07/22/25 Rx gram/dose oral powder (Miralax) sennosides 8.6 mg tablet (Senna 8.6 mg PO QPM #30 tabs 07/22/25 Rx Lax) sodium phosphates 19 gram-7 118 ml KS DAILY PRN constipation 07/22/25 Rx gram/118 mL enema (Fleet Enema) #133 mL Patient History Medical History History of colonic polyps Impacted cerumen of both ears Left buttock abscess Stercoral colitis Fecal impaction Acute metabolic encephalopathy Abnormal brain MRI Acute urinary retention Rhinovirus infection Seizure disorder taken off dilantin History of colon polyps Hiatal hernia History of panic attacks Fracture of femoral neck, left Surgical History History of incision and drainage (07/16/25) Dr. Silvestre buttock abscess History of colonoscopy History of repair of hip fracture left History of esophagogastroduodenoscopy (EGD) Family History Mother Family history of diabetes mellitus Other Family history non-contributory Denies family history of Ovarian cancer Prostate cancer Myocardial infarction Breast cancer Colorectal cancer Social History (Updated 09/08/25 @ 14:06 by Stu Roberts DO) Smoking Status: Former smoker Tobacco Type: Cigarettes Age Started Using Tobacco: 18; packs per day: 0.25; Cigarettes Per Day: 1-3 a week; Second Hand Exposure: No; Do You Dip or Chew Tobacco: No; Hx Alcohol Use: No Hx Substance Use: No Preferred Language: Chinese Communication Ability: Effective Visual Impairment: No Limitations Hearing Ability: Normal [employer] Required: No Beliefs That Will Affect Care: None Current Living Situation: Personal Care Facility Current Living Situation Comment: [facility] Feels Safe at Home: Yes Childhood Exposure to Second-Hand Smoke: Yes Dental Care, Regularly: No Physical Activity Frequency: 3-4 Times per Week Seatbelt Use: always Sunscreen Use: No Assistive Devices: None Review of System Poor historian given current psych issues; Unable to obtain a reliable history Physical Exam Physical Exam: General- NAD, mumbles to self occasionally during interview HEENT- Anicteric sclera, EOMI,low voice Neck- Supple Lung-Non labored breathin, On RA Abdomen-soft,NT, ND Gu- No suprapubic tenderness, No flank tenderness AAO times 2 Results & Data Vital Signs (Past 12 Hours) Vital Signs Temp Pulse Resp BP Pulse Ox O2 Del Method 09/13/25 07:09 36.3 C L 76 19 109/70 98 Room Air 09/12/25 22:26 36.4 C L 77 16 99/73 L 99 Room Air Laboratory Results Laboratory Results - last 48 hr 09/12/25 09/13/25 07:37 06:23 WBC 9.52 RBC 4.59 L Hgb 13.2 L Hct 41.6 L MCV 90.6 MCH 28.8 MCHC 31.7 L RDW Std Deviation 48.9 H RDW Coeff of Stefani 14.6 H Plt Count 182 MPV 12.0 Sodium 140 142 Potassium 2.9 L 3.4 L Chloride 101 106 Carbon Dioxide 32 30 Anion Gap 7 6 BUN 13 13 Creatinine 1.04 1.07 Est Cr Clr Drug Dosing 49.3 47.9 eGFR 76.77 74.19 BUN/Creatinine Ratio 12.5 12.1 Glucose 105 H 116 H Calcium 8.2 L 8.2 L Phosphorus 3.4 2.7 Albumin 3.9 3.9 Microbiology 09/08/25 14:50 Blood Aerobic Blood Culture - Preliminary No growth in Aerobic bottle after 48 hours. 09/08/25 14:50 Blood Anaerobic Blood Culture - Preliminary No growth in Anaerobic bottle after 48 hours. 09/08/25 14:50 Blood Aerobic Blood Culture - Preliminary No growth in Aerobic bottle after 48 hours. 09/08/25 14:50 Blood Anaerobic Blood Culture - Preliminary No growth in Anaerobic bottle after 48 hours. 09/08/25 11:37 Urine,Clean Catch Urine Culture - Final Escherichia coli ESBL Medications Administered Home Medications Medication Instructions Recorded Confirmed Last Taken omeprazole 20 mg capsule,delayed 20 mg PO BID 09/06/18 07/14/25 07/13/25 08:00 release hydroxyzine pamoate 25 mg capsule 25 mg PO HS #5 caps 01/01/20 07/14/25 07/12/25 cyanocobalamin (vitamin B-12) 1,000 mcg PO DAILY #90 tabs 07/03/23 07/14/25 07/13/25 08:00 1,000 mcg tablet (Vitamin B-12) clozapine 100 mg tablet 100 mg PO BID 03/24/24 07/14/25 07/13/25 0800 clozapine 200 mg tablet 200 mg PO HS 03/24/24 07/14/25 07/12/25 cholecalciferol (vitamin D3) 50 2,000 unit PO QPM 04/20/25 07/14/25 07/12/25 mcg (2,000 unit) tablet (Vitamin D3) ferrous sulfate 325 mg (65 mg 325 mg PO QAM 04/20/25 07/14/25 07/13/25 iron) tablet levothyroxine 137 mcg tablet 137 mcg PO QAM 04/20/25 07/14/25 07/13/25 06:00 calcium carbonate (Calcium 600) 600 mg PO QAM 07/13/25 07/14/25 07/13/25 sertraline 50 mg tablet 50 mg PO DAILY 07/13/25 07/14/25 07/13/25 08:00 acetaminophen 325 mg tablet 325 - 650 mg PO Q6 PRN pain. 07/14/25 07/14/25 Unknown cholecalciferol (vitamin D3) 25 25 mcg PO QPM 07/14/25 07/14/25 07/12/25 mcg (1,000 unit) tablet (Vitamin D3) eucalyptus-menthol oral mucosal 1 john paul mucous membrane Q4 PRN Cough 07/14/25 07/14/25 Unknown lozenge linaclotide 290 mcg capsule 290 mcg PO DAILY #30 caps 07/22/25 Unknown (Linzess) polyethylene glycol 3350 17 17 g PO DAILY #119 grams 07/22/25 Unknown gram/dose oral powder (Miralax) sennosides 8.6 mg tablet (Senna 8.6 mg PO QPM #30 tabs 07/22/25 Unknown Lax) sodium phosphates 19 gram-7 118 ml KS DAILY PRN constipation 07/22/25 Unknown gram/118 mL enema (Fleet Enema) #133 mL Active Medications Generic Name Dose Route Start Last Admin Trade Name Freq PRN Reason Stop Dose Admin Calcium Carbonate 1,500 mg 09/09/25 18:19 09/09/25 18:30 Calcium Carbonate 500 Mg Chewable Tab PO 10/09/25 18:18 1,500 mg Q6H PRN Administration Indigestion Clozapine 100 mg 09/08/25 20:00 09/13/25 08:56 Clozapine 100 Mg Tab PO 10/08/25 19:59 100 mg BID@0800,1999 BAUDILIO Administration Protocol Clozapine 200 mg 09/08/25 22:00 09/12/25 22:31 Clozapine 100 Mg Tab PO 10/08/25 21:59 200 mg DAILY@2200 BAUDILIO Administration Enoxaparin Sodium 30 mg 09/08/25 21:00 09/12/25 20:17 Enoxaparin Inj 30 Mg/0.3 Ml Syr SQ 10/08/25 20:59 30 mg Q24H BAUDILIO Administration Piperacillin Sod/Tazobactam Sod 4.5 gm in 100 mls @ 25 mls/hr 09/10/25 14:00 09/13/25 05:57 Zosyn IV 09/20/25 13:59 25 mls/hr Q8H BAUDILIO Administration Protocol Levothyroxine Sodium 137 mcg 09/09/25 06:30 09/13/25 05:57 Levothyroxine Sodium 137 Mcg Tablet PO 10/09/25 06:29 137 mcg DAILYBB BAUDILIO Administration Linaclotide 290 mcg 09/09/25 09:00 09/13/25 08:56 Linaclotide 145 Mcg Capsule PO 10/09/25 08:59 290 mcg DAILY BAUDILIO Administration Ondansetron HCl 4 mg 09/09/25 20:09 09/09/25 20:20 Ondansetron Inj 2 Mg/Ml 2 Ml Vial IV 10/09/25 20:08 4 mg Q6H PRN Administration Nausea And Vomiting Pantoprazole Sodium 40 mg 09/08/25 21:00 09/13/25 08:55 Pantoprazole 40 Mg Tab PO 10/08/25 20:59 40 mg BID BAUDILIO Administration Polyethylene Glycol 17 gm 09/09/25 09:00 09/13/25 08:56 Polyethylene (Miralax) 17 Gm Pack PO 10/09/25 08:59 Not Given DAILY BAUDILIO Potassium Chloride 40 meq 09/12/25 09:00 09/13/25 08:54 Potassium Chloride Crtab 20 Meq Tabcr PO 10/12/25 08:59 40 meq QAM BAUDILIO Administration Sertraline HCl 50 mg 09/09/25 09:00 09/13/25 08:56 Sertraline Hcl 50 Mg Tablet PO 10/09/25 08:59 50 mg DAILY BAUDILIO Administration (3) Schizoaffective disorder Schizoaffective disorder type: depressive Qualified Code(s): F25.1 - Schizoaffective disorder, depressive type
[2025-09-13] MEDS: ERTAPENEM 1000MG 1,000 MG/10 ML SYR IV SCH (14:30)
--- NOTE | 2025-09-14 14:30 | Hospitalist Progress Note ---
Date of Service September 14, 2025 Assessment & Plan (1) Acute lower urinary tract infection: (2) Intentional self-harm: (3) Nonadherence to medical treatment: (4) Hypokalemia: (5) Superficial laceration of forearm: (6) Schizoaffective disorder: (7) Delusional thoughts: Plan 69-year-old male who presents after attempted self-harm at the personal-shelter found to have an acute urinary tract infection, self-discontinuation of antipsychotic pharmaceuticals with exacerbative symptoms of schizophrenia. #Acute bacterial cystitis without hemorrhage -leukocystosis resolved Discontinued Rocephin 2 g IV daily Urine cultures with ESBL E. coli -Discontinued Zosyn, ID recommendations with initiation of Ertapenem at 1000mg Q24H (plan to treat for total of 7d for ESBL E. Coli cystitis)-->>EOT after 09/17 dose, can bridge to Macrobid if patient can be discharged Urine cultures with ESBL E. coli -Blood cultures without growth at 72 hours #Emesis Episode of small volume emesis on 09/09 that was reported to have coffee ground substance; without significant change in hemodynamics or hemoglobin, suspect this was normal gastric secretions noted rather than true coffee ground emesis -no additional emesis to report -Continue PPI #Suicidal ideation // Schizoaffective disorder Patient self discontinued the majority of their medications at their personal- shelter; this may have also been up overall and precipitating their altered behavior and suicide attempt -Psychiatry consulted; recommend discharge to an inpatient geriatric psychiatry service -Superficial abrasion noted to left inner aspect of wrist, well healed #Hypokalemic Recurrent, continue with daily supplementation -Continue Potassium chloride 40 mg p.o. daily -check BMP DVT prophylaxis: Lovenox 40mg SQ daily Diet: Low fat, safe tray Disposition: pending discharge with consideration to course of Ertapenem Admission and Anticipated Discharge Date Admission Date: September 08, 2025 Subjective Patient resting in bed this am. Reports he is able to take care of himself and doesn't understand why people keep trying to help him while he is here. Reveals he understands he superficially cut himself to left wrist as he was attempting to remove extra blood from his body. States he moved bowels yesterday. No complaints. Eating and drinking well. Review of Systems Review of Systems: All systems reviewed & are unremarkable except as noted in Subjective Physical Exam Physical Exam: GENERAL APPEARANCE: A&O. Sitting comfortably in bed. NAD. SKIN: Normal color without rashes or lesions. Normal turgor. HEENT: Head AT/NC. Buccal mucosa is moist and pink. NECK: No jugular venous distention. No thyroid enlargement. There is no lymphadenopathy. HEART: RRR without m/g/r LUNGS: Normal inspiratory effort. CTA without w/r/r ABDOMEN: No guarding or rigidity. Normoactive BS in all four quadrants. Abdomen soft and NT. MSK: No bony gross/deformities throughout. ROM intact. EXTREMITIES: No edema, No peripheral cyanosis. Superficial abrasion without redness or drainage, open to air present to left inner aspect of wrist Neuro: CN 2-12 grossly intact. No focal neuro deficits PSYCHIATRIC: Normal affect. Eye contact is good. Speech is normal rate and content. Responses are appropriate. Results & Data Results & Data Vital Signs (Past 12 Hours) Vital Signs Temp Pulse Resp BP Pulse Ox O2 Del Method 09/14/25 07:03 36.3 C L 89 18 127/78 94 Room Air PG Care Time/CCT Total # of Minutes Spent Total Time Spent with Patient: Total time spent is greater than 50% in coordination of care (as documented) at patient's floor/unit and/or counseling patient: Coding Level of Care Code 04032 SUB INP/OBS CARE 2/35MIN Diagnoses Acute lower urinary tract infection N39.0 Intentional self-harm X83.8XXA Nonadherence to medical treatment Z91.199 Hypokalemia E87.6 Superficial laceration of forearm S51.819A Schizoaffective disorder, depressive type F25.1 Schizoaffective disorder type: depressive Delusional thoughts F22 (6) Schizoaffective disorder Schizoaffective disorder type: depressive Qualified Code(s): F25.1 - Schizoaffective disorder, depressive type
[2025-09-14 14:59] LABS: Hematocrit (blood only) 43.2 % (42.0-52.0); Hemoglobin 13.5 g/dL (14.0-18.0); Immature Granulocytes # (auto) 0.04 K/uL (0.01-0.20); Immature Granulocytes % (auto) 0.3 %; Mean Corpuscular Hemoglobin 28.5 pg (25.0-34.0); Mean Corpuscular Volume 91.3 fL (80.0-100.0); Platelet Count 203 K/uL (130-400); RDW Standard Deviation 49.5 fL (36.4-46.3); Red Blood Count 4.73 M/uL (4.70-6.10); White Blood Count 11.95 K/ul (4.8-10.8)
[2025-09-14 15:09] LABS: Anion Gap 6.0 (3-11); Calcium 8.9 mg/dl (8.6-10.3); Carbon Dioxide 25.0 mmol/L (21-32); Chloride 109.0 mmol/L (98-107); Potassium 4.5 mmol/L (3.5-5.1); Sodium 140.0 mmol/L (136-145)
[2025-09-14 15:15] LABS: Blood Urea Nitrogen 11.0 mg/dl (6-23); Creatinine Clr Calc Pharmacy 61.0 ml/min; Glucose 87.0 mg/dl (70-99(Fasting))
[2025-09-15] MEDS: MELATONIN 3 MG TAB PO PRN (00:52)
[2025-09-15 08:29] LABS: Albumin Level 3.8 gm/dl (3.4-5.0); Anion Gap 6.0 (3-11); Blood Urea Nitrogen 15.0 mg/dl (6-23); Calcium 8.5 mg/dl (8.6-10.3); Carbon Dioxide 26.0 mmol/L (21-32); Chloride 108.0 mmol/L (98-107); Creatinine Clr Calc Pharmacy 62.5 ml/min; Glucose 90.0 mg/dl (70-99(Fasting)); Potassium 4.1 mmol/L (3.5-5.1); Sodium 140.0 mmol/L (136-145)
--- NOTE | 2025-09-15 09:03 | Hospitalist Progress Note ---
Date of Service September 15, 2025 Assessment & Plan (1) Acute lower urinary tract infection: (2) Intentional self-harm: (3) Nonadherence to medical treatment: (4) Hypokalemia: (5) Superficial laceration of forearm: (6) Schizoaffective disorder: (7) Delusional thoughts: Plan 69-year-old male who presents after attempted self-harm at the [facility] [facility] found to have an acute urinary tract infection, self-discontinuation of antipsychotic pharmaceuticals with exacerbative symptoms of schizophrenia. #Acute bacterial cystitis without hemorrhage Discontinued Rocephin 2 g IV daily Urine cultures with ESBL E. coli -Discontinued Zosyn, ID recommendations with initiation of Ertapenem at 1000mg Q24H (plan to treat for total of 7d for ESBL E. Coli cystitis)-->>EOT after 09/17 dose, can bridge to Macrobid on d/c if needed as he is medically stable -Urine cultures with ESBL E. coli -Blood cultures NGTD after 5d #Suicidal ideation // Schizoaffective disorder Patient self discontinued the majority of their medications at their personal- [place] [facility]; this may have also been up overall and precipitating their altered behavior and suicide attempt -Psychiatry consulted; recommend discharge to an inpatient geriatric psychiatry service -302 denied for patient, he is agreeable to signing 201 for continued inpatient geriatric pyschiatric treatment -Superficial abrasion noted to left inner aspect of wrist, well healed #Hypokalemic Recurrent, continue with daily supplementation -Continue Potassium chloride 40 mg p.o. daily -K WNL DVT prophylaxis: Lovenox 40mg SQ daily Diet: Low fat, safe tray Disposition: pending possible d/c to geriatric psychiatric unit At this time patient is medically clear for inpatient psychiatric treatment Admission and Anticipated Discharge Date Admission Date: September 08, 2025 Subjective Patient sitting up in bed this am. States he has no complaints. He is agreeable to being transferred to an inpatient [facility] psychiatric unit prior to d/c back to assisted living facility. Tolerating Clozaril. Review of Systems Review of Systems: All systems reviewed & are unremarkable except as noted in Subjective Physical Exam Physical Exam: GENERAL APPEARANCE: A&O. Sitting comfortably in bed. NAD. SKIN: Normal color without rashes or lesions. Normal turgor. HEENT: Head AT/NC. Buccal mucosa is moist and pink. NECK: No jugular venous distention. No thyroid enlargement. There is no lymphadenopathy. HEART: RRR without m/g/r LUNGS: Normal inspiratory effort. CTA without w/r/r ABDOMEN: No guarding or rigidity. Normoactive BS in all four quadrants. Abdomen soft and NT. MSK: No bony gross/deformities throughout. ROM intact. EXTREMITIES: No edema, No peripheral cyanosis. Superficial abrasion without redness or drainage, open to air present to left inner aspect of wrist Neuro: CN 2-12 grossly intact. No focal neuro deficits PSYCHIATRIC: Normal affect. Eye contact is good. Speech is normal rate and content. Responses are appropriate. Results & Data Results & Data Vital Signs (Past 12 Hours) Vital Signs Temp Pulse Resp BP Pulse Ox O2 Del Method 09/14/25 22:35 36.8 C 79 16 115/73 97 Room Air 09/14/25 21:40 Room Air Laboratory Results Labs reviewed: CBC, BMP PG Care Time/CCT Total # of Minutes Spent Total Time Spent with Patient: Total time spent is greater than 50% in coordination of care (as documented) at patient's floor/unit and/or counseling patient: Coding Level of Care Code 52925 SUB INP/OBS CARE 2/35MIN Diagnoses Acute lower urinary tract infection N39.0 Intentional self-harm X83.8XXA Nonadherence to medical treatment Z91.199 Hypokalemia E87.6 Superficial laceration of forearm S51.819A Schizoaffective disorder, depressive type F25.1 Schizoaffective disorder type: depressive Delusional thoughts F22 (6) Schizoaffective disorder Schizoaffective disorder type: depressive Qualified Code(s): F25.1 - Schizoaffective disorder, depressive type
--- NOTE | 2025-09-15 10:40 | Psychiatric Progress Note ---
Date of Service September 15, 2025 Impression / Recommendations Impression Diagnostically consistent with schizoaffective disorder on clozapine as well as likely cognitive impairment with increased delusions about having excessive blood leading to suicide attempt vs delusional driven cut to his wrist vs 2/2 possible delirium from UTI. He recently self-discontinued his clozapine for about 7 days so certainly possible he experienced some abrupt clozapine- withdrawal psychosis versus increased psychosis in setting of recent medication adherence vs from UTI. Unclear if his garbled speech, confusion and loosening of associations is related to delirium vs increased psychosis vs cognitive impairment process. Given no overt signs of responding to internal stimuli nor identified hallucinations at times of my assessment suspect more likely co- occurring cognitive/dementia component vs delirium. A: He was fully oriented this morning but continues to have some loosened thought content and is hard to follow at times. Ongoing delusion that he needed to let out some of his blood when asked about his reason for cutting his wrist prior to admission. 302 commitment pursued as at time of my assessment he could not state willingness for inpatient psychiatric admission, which was denied by the county. However, later in the afternoon he consented to geriatric inpatient psychiatry treatment and agrees to 201 commitment. Encouragingly his personal [facility], will take him back after discharge and I feel that stabilization at geriatric psychiatry will be beneficial to continue to monitor his response to clozapine and delusions about his blood. He is now medically stable, geriatric psychiatry bed search started. Overall, I spent a total of 60 minutes with this case including review of chart records, review of labwork, direct evaluation of the patient at bedside, counseling the patient, discussion of the patient with the Nurse and with the hospitalist provider, discussion with the psychiatric liason during clinical rounds and documentation in the electronic health record. (1) Schizoaffective disorder: (2) Delusional thoughts: (3) Superficial laceration of forearm: Plan 09/15/2025: -now medically stable, 201 commitment, geriatric bed search in progress -continue 1-on-1 for now given recent suicide attempt vs self-harm from delusions but if he continues to deny SI could consider trial off of this and change to q15 minute checks -continue psychiatric medications as ordered 09/11/2025: -Continue current psychiatric medication (clozapine and sertraline). ANC reviewed. -Psych liason to get further collateral from sister or brother -Plan for likely geriatric psychiatry referral once medically stable (currently being treated for UTI) 09/10/25: Continue current medications proactively use a stool softener likedocusate, combined with an osmotic laxative (e.g.,polyethylene glycol) to prevent Clozapine induced constipation 09/09/25 If pateint has been off CLozapine for longer than 3 days, will need to start at 25mg and taper up by adding 25mg daily until reaching his regular dose. CBC to monitor ANC (currently elevated due to infection) Interval History Identifying Information VALERIA WREN is a 69-year-old male who presents after attempted self-harm at the personal[facility] found to have an acute urinary tract infection. Psychiatry consulted due to an episode of self-inflicted injury in an apparent suicide attempt. Chief Complaint "Ok". Subjective Subjective Patient was seen & assessed and interval progress reviewed. A&Ox3 this morning. He denies current thoughts of suicide but does agree he cut his wrist before coming in due to "too much blood". Hard to follow his train of thought at times. He had just awoken from a nap per 1-on-1. Physical Exam Psychiatric Orientation: alert and oriented x 3 Apperance: appropriately dressed and + disheveled Eye Contact: + fair eye contact Motor Behavior: no abnormal motor movements Speech: + abnormal rate/rhythm/volume of speech (garbled) Affect: + flat affect Mood: no depressed mood Thought Process: + looseness of associations Thought Content: + delusions Suicidal Thoughts: denies suicidal thoughts Homicidal Thoughts: denies homicidal thoughts Insight: + limited insight Judgment: + fair judgement Vital Signs (Past 24 Hours) Last Vital Signs Temp 36.3 C L 09/15/25 09:15 Pulse 75 09/15/25 09:15 Resp 18 09/15/25 09:15 BP 118/75 09/15/25 09:15 Pulse Ox 94 09/15/25 09:15 O2 Del Method Room Air 09/15/25 09:15 Results & Data ([facility]) Laboratory Results Laboratory Results - last 24 hr 09/14/25 09/14/25 09/15/25 14:37 16:25 07:20 WBC 11.95 H RBC 4.73 Hgb 13.5 L Hct 43.2 MCV 91.3 MCH 28.5 MCHC 31.3 L RDW Std Deviation 49.5 H RDW Coeff of Stefani 14.9 H Plt Count 203 MPV 11.0 Immature Gran % (Auto) 0.3 Neut % (Auto) 72.3 Lymph % (Auto) 16.6 [place] % (Auto) 5.8 Eos % (Auto) 4.1 Baso % (Auto) 0.9 Neut # (Auto) 8.64 H Lymph # (Auto) 1.98 [place] # (Auto) 0.69 H Eos # (Auto) 0.49 Baso # (Auto) 0.11 Immature Gran # (Auto) 0.04 Sodium 140 140 Potassium 4.5 D 4.1 Chloride 109 H 108 H Carbon Dioxide 25 26 Anion Gap 6 6 BUN 11 15 Creatinine 0.84 0.82 Est Cr Clr Drug Dosing 61.0 62.5 eGFR 93.23 93.91 BUN/Creatinine Ratio 13.1 18.3 Glucose 87 90 Calcium 8.9 8.5 L Phosphorus 3.2 Albumin 3.8 SARS-CoV-2 RNA (RT-PCR) Negative Current Inpatient Medications Current Inpatient Medications: Current Inpatient Medications Calcium Carbonate (Calcium Carbonate 500 Mg Chewable Tab) 1,500 mg PO Q6H PRN PRN Reason: Indigestion Stop: 10/09/25 18:18 Last Admin: 09/09/25 18:30 Dose: 1,500 mg Clozapine (Clozapine 100 Mg Tab) 100 mg PO BID@0800,[facility]; Protocol Stop: 10/08/25 19:59 Last Admin: 09/15/25 09:18 Dose: 100 mg Clozapine (Clozapine 100 Mg Tab) 200 mg PO DAILY@2200 [facility] Stop: 10/08/25 21:59 Last Admin: 09/14/25 21:40 Dose: 200 mg Enoxaparin Sodium (Enoxaparin Inj 30 Mg/0.3 Ml Syr) 30 mg SQ Q24H [facility] Stop: 10/08/25 20:59 Last Admin: 09/14/25 21:41 Dose: 30 mg Ertapenem (Invanz 1000mg) 1,000 mg in 10 mls @ 2 mls/min IV Q24H [facility] Stop: 09/18/25 13:29 Last Admin: 09/14/25 15:00 Dose: 2 mls/min Levothyroxine Sodium (Levothyroxine Sodium 137 Mcg Tablet) 137 mcg PO DAILYBB [facility] Stop: 10/09/25 06:29 Last Admin: 09/15/25 06:31 Dose: Not Given Linaclotide (Linaclotide 145 Mcg Capsule) 290 mcg PO DAILY BAUDILIO Stop: 10/09/25 08:59 Last Admin: 09/15/25 09:16 Dose: 290 mcg Melatonin (Melatonin 3 Mg Tab) 6 mg PO HS PRN PRN Reason: Sleep Stop: 10/15/25 00:25 Last Admin: 09/15/25 00:52 Dose: 6 mg Ondansetron HCl (Ondansetron Inj 2 Mg/Ml 2 Ml Vial) 4 mg IV Q6H PRN PRN Reason: Nausea And Vomiting Stop: 10/09/25 20:08 Last Admin: 09/09/25 20:20 Dose: 4 mg Pantoprazole Sodium (Pantoprazole 40 Mg Tab) 40 mg PO BID BAUDILIO Stop: 10/08/25 20:59 Last Admin: 09/15/25 09:16 Dose: 40 mg Polyethylene Glycol (Polyethylene (Miralax) 17 Gm Pack) 17 gm PO DAILY BAUDILIO Stop: 10/09/25 08:59 Last Admin: 09/15/25 09:22 Dose: 17 gm Potassium Chloride (Potassium Chloride Crtab 20 Meq Tabcr) 40 meq PO QAM BAUDILIO Stop: 10/12/25 08:59 Last Admin: 09/15/25 09:16 Dose: 40 meq Sertraline HCl (Sertraline Hcl 50 Mg Tablet) 50 mg PO DAILY BAUDILIO Stop: 10/09/25 08:59 Last Admin: 09/15/25 09:16 Dose: 50 mg (1) Schizoaffective disorder Schizoaffective disorder type: depressive Qualified Code(s): F25.1 - Schizoaffective disorder, depressive type
[2025-09-15 16:23] LABS: Hematocrit (blood only) 41.4 % (42.0-52.0); Hemoglobin 13.3 g/dL (14.0-18.0); Immature Granulocytes # (auto) 0.04 K/uL (0.01-0.20); Immature Granulocytes % (auto) 0.4 %; Mean Corpuscular Hemoglobin 28.7 pg (25.0-34.0); Mean Corpuscular Volume 89.4 fL (80.0-100.0); Platelet Count 209 K/uL (130-400); RDW Standard Deviation 50.2 fL (36.4-46.3); Red Blood Count 4.63 M/uL (4.70-6.10); White Blood Count 10.20 K/ul (4.8-10.8)
[2025-09-15 16:40] LABS: Anion Gap 5.0 (3-11); Blood Urea Nitrogen 14.0 mg/dl (6-23); Calcium 8.4 mg/dl (8.6-10.3); Carbon Dioxide 25.0 mmol/L (21-32); Chloride 108.0 mmol/L (98-107); Creatinine Clr Calc Pharmacy 57.6 ml/min; Glucose 87.0 mg/dl (70-99(Fasting)); Potassium 4.7 mmol/L (3.5-5.1); Sodium 138.0 mmol/L (136-145)
[2025-09-16 09:33] LABS: Hematocrit (blood only) 44.1 % (42.0-52.0); Hemoglobin 14.2 g/dL (14.0-18.0); Immature Granulocytes # (auto) 0.09 K/uL (0.01-0.20); Immature Granulocytes % (auto) 0.5 %; Mean Corpuscular Hemoglobin 29.3 pg (25.0-34.0); Mean Corpuscular Volume 90.9 fL (80.0-100.0); Platelet Count 227 K/uL (130-400); RDW Standard Deviation 50.9 fL (36.4-46.3); Red Blood Count 4.85 M/uL (4.70-6.10); White Blood Count 17.59 K/ul (4.8-10.8)
[2025-09-16 09:48] LABS: Anion Gap 6.0 (3-11); Blood Urea Nitrogen 14.0 mg/dl (6-23); Calcium 8.8 mg/dl (8.6-10.3); Carbon Dioxide 27.0 mmol/L (21-32); Chloride 105.0 mmol/L (98-107); Creatinine Clr Calc Pharmacy 49.3 ml/min; Glucose 94.0 mg/dl (70-99(Fasting)); Potassium 4.5 mmol/L (3.5-5.1); Sodium 138.0 mmol/L (136-145)
[2025-09-16 11:13] LABS: Chlamydia pneumoniae PCR Not Detected (NotDetected); Coronavirus 229E PCR Not Detected (NotDetected); Coronavirus CoV-2 (COVID19)PCR Not Detected (NotDetected); Coronavirus HKU1 PCR Not Detected (NotDetected); Coronavirus NL63 PCR Not Detected (NotDetected); Coronavirus OC43PCR Not Detected (NotDetected); Human Metapneumovirus PCR Not Detected (NotDetected); Parainfluenza Virus 1 PCR Not Detected (NotDetected); Parainfluenza Virus 2 PCR Not Detected (NotDetected); Parainfluenza Virus 3 PCR Not Detected (NotDetected); Parainfluenza Virus 4 PCR Not Detected (NotDetected); Respiratory Syncytial VirusPCR Not Detected (NotDetected); Rhinovirus/Enterovirus PCR Not Detected (NotDetected)
[2025-09-16] MEDS ORDERED: guaiFENesin 600 MG TABCR PO PRN (14:42)
--- NOTE | 2025-09-16 14:43 | XRay Report ---
TWO VIEW CHEST CLINICAL HISTORY: Cough. Leukocytosis. FINDINGS: PA and lateral chest radiographs are compared to study dated 07/13/2025 and correlated with chest CT dated 06/23/2019. The cardiomediastinal silhouette is unremarkable noting atherosclerotic calc ification of the thoracic aorta. Emphysema and chronic interstitial thickening is similar to previous . Fibrotic changes again noted at the right apex. No airspace consolidation or pleural effusion is id entified. There is no pneumothorax. The skeletal structures are osteopenic. Mild compression deformit ies are noted in the lower thoracic region. IMPRESSION: Emphysematous change with no acute cardiopulmonary abnormality identified. ACT 112: Negative or not required by law. Electronically signed by: Thiago King M.D. 09/16/2025 2:42 PM
--- NOTE | 2025-09-16 16:02 | Hospitalist Progress Note ---
Date of Service September 16, 2025 Assessment & Plan (1) Acute lower urinary tract infection: (2) Intentional self-harm: (3) Nonadherence to medical treatment: (4) Hypokalemia: (5) Superficial laceration of forearm: (6) Schizoaffective disorder: (7) Delusional thoughts: Plan 69-year-old male who presents after attempted self-harm at the personal[facility] found to have an acute urinary tract infection, self-discontinuation of antipsychotic pharmaceuticals with exacerbative symptoms of schizophrenia. #Acute bacterial cystitis without hemorrhage Discontinued Rocephin 2 g IV daily Urine cultures with ESBL E. coli -Discontinued Zosyn, ID recommendations with initiation of Ertapenem at 1000mg Q24H (plan to treat for total of 7d for ESBL E. Coli cystitis)-->>EOT after 09/17 dose, can bridge to Macrobid on d/c if needed as he is medically stable -Urine cultures with ESBL E. coli -Blood cultures NGTD after 5d ##Leukocytosis -has been with transient, fluctuating elevated WBCs since 2018 -possible correlation to Clozaril -WBC 17.59 this am in setting of reported mild chest congestion and cough when lying down -Resp Biofire neg -2V Chest XRAY without airspace consolidation or pleural effusion -add Mucinex prn for cough #Suicidal ideation // Schizoaffective disorder Patient self discontinued the majority of their medications at their personal[facility]; this may have also been up overall and precipitating their altered behavior and suicide attempt -Psychiatry consulted; recommend discharge to an inpatient geriatric psychiatry service -302 denied for patient, he is agreeable to signing 201 for continued inpatient geriatric psychiatric treatment -Superficial abrasion noted to left inner aspect of wrist, well healed #Hypokalemic Recurrent, continue with daily supplementation -Continue Potassium chloride 40 mg p.o. daily -K WNL DVT prophylaxis: Lovenox 40mg SQ daily Diet: Low fat, safe tray Disposition: pending possible d/c to geriatric psychiatric unit At this time patient is medically clear for inpatient psychiatric treatment Admission and Anticipated Discharge Date Admission Date: September 08, 2025 Supervising Physician Co-Signing Physician Notes Attending Attestation: Chart reviewed, care plan d/w JOHANNY Teague. I agree w/ the doran components of her documentation. Mateo Hernandez MD Subjective Pleasant and cooperative this am. Eating well/drinking well. Reports no concerns related to urinating or with moving bowels. Last BM 09/14/25. Nursing reports +cough this am. Slight chest congestion. No fever, chills, SOB, N/V/D or anorexia. Review of Systems Respiratory: +cough Physical Exam Physical Exam: GENERAL APPEARANCE: A&O. Sitting comfortably in bed. NAD. SKIN: Normal color without rashes or lesions. Normal turgor. HEENT: Head AT/NC. Buccal mucosa is moist and pink. NECK: No jugular venous distention. No thyroid enlargement. There is no lymphadenopathy. HEART: RRR without m/g/r LUNGS: Normal inspiratory effort. CTA without w/r/r ABDOMEN: No guarding or rigidity. Normoactive BS in all four quadrants. Abdomen soft and NT. MSK: No bony gross/deformities throughout. ROM intact. EXTREMITIES: No edema, No peripheral cyanosis. Superficial abrasion without redness or drainage, open to air present to left inner aspect of wrist. Neuro: CN 2-12 grossly intact. No focal neuro deficits PSYCHIATRIC: Normal affect. Eye contact is good. Speech is normal rate and content. Responses are appropriate. Results & Data Results & Data Vital Signs (Past 12 Hours) Vital Signs Temp Pulse Resp BP Pulse Ox O2 Del Method 09/16/25 14:47 36.4 C L 88 18 124/82 96 Room Air 09/16/25 07:30 Room Air 09/16/25 06:59 36.4 C L 82 18 96/64 L 94 Room Air Laboratory Results Labs reviewed: CBC, BMP PG Care Time/CCT Total # of Minutes Spent Total Time Spent with Patient: Total time spent is greater than 50% in coordination of care (as documented) at patient's floor/unit and/or counseling patient: Coding Level of Care Code 78223 SUB INP/OBS CARE 2/35MIN Diagnoses Acute lower urinary tract infection N39.0 Intentional self-harm X83.8XXA Nonadherence to medical treatment Z91.199 Hypokalemia E87.6 Superficial laceration of forearm S51.819A Schizoaffective disorder, depressive type F25.1 Schizoaffective disorder type: depressive Delusional thoughts F22 (6) Schizoaffective disorder Schizoaffective disorder type: depressive Qualified Code(s): F25.1 - Schizoaffective disorder, depressive type
[2025-09-16] MEDS ORDERED: ENOXAPARIN INJ 30 MG/0.3 ML SYR SQ SCH (21:00)
[2025-09-16] MEDS: ENOXAPARIN INJ 40 MG/0.4 ML SYR SQ SCH (21:25)
[2025-09-17 06:20] LABS: Hematocrit (blood only) 40.4 % (42.0-52.0); Hemoglobin 13.2 g/dL (14.0-18.0); Immature Granulocytes # (auto) 0.06 K/uL (0.01-0.20); Immature Granulocytes % (auto) 0.5 %; Mean Corpuscular Hemoglobin 29.3 pg (25.0-34.0); Mean Corpuscular Volume 89.8 fL (80.0-100.0); Platelet Count 217 K/uL (130-400); RDW Standard Deviation 49.1 fL (36.4-46.3); Red Blood Count 4.50 M/uL (4.70-6.10); White Blood Count 12.39 K/ul (4.8-10.8)
[2025-09-17 06:38] LABS: Albumin Level 3.7 gm/dl (3.4-5.0); Anion Gap 6.0 (3-11); Blood Urea Nitrogen 14.0 mg/dl (6-23); Calcium 9.1 mg/dl (8.6-10.3); Carbon Dioxide 27.0 mmol/L (21-32); Chloride 104.0 mmol/L (98-107); Creatinine Clr Calc Pharmacy 57.6 ml/min; Glucose 87.0 mg/dl (70-99(Fasting)); Potassium 4.1 mmol/L (3.5-5.1); Sodium 137.0 mmol/L (136-145)
[2025-09-17 07:15] VITALS: PULSE 74; RESP 18
--- NOTE | 2025-09-17 14:36 | Hospitalist Progress Note ---
Date of Service September 17, 2025 Assessment & Plan (1) Acute lower urinary tract infection: (2) Intentional self-harm: (3) Nonadherence to medical treatment: (4) Hypokalemia: (5) Superficial laceration of forearm: (6) Schizoaffective disorder: (7) Delusional thoughts: Plan 69-year-old male who presents after attempted self-harm at the personal[facility] found to have an acute urinary tract infection, self-discontinuation of antipsychotic pharmaceuticals with exacerbative symptoms of schizophrenia. #Acute bacterial cystitis without hemorrhage Discontinued Rocephin 2 g IV daily Urine cultures with ESBL E. coli -Discontinued Zosyn, ID recommendations with initiation of Ertapenem at 1000mg Q24H (plan to treat for total of 7d for ESBL E. Coli cystitis)-->>EOT after 09/17 dose (he has fully finished course) -Blood cultures NGTD after 5d ##Leukocytosis -has been with transient, fluctuating elevated WBCs since 2018 -possible correlation to Clozaril -WBC 12.39, trend every other day -Resp Biofire neg -2V Chest XRAY without airspace consolidation or pleural effusion -added Mucinex prn for cough #Suicidal ideation // Schizoaffective disorder Patient self discontinued the majority of their medications at their personal[facility]; this may have also been up overall and precipitating their altered behavior and suicide attempt -Psychiatry consulted; recommend discharge to an inpatient geriatric psychiatry service -302 denied for patient, he is agreeable to signing 201 for continued inpatient geriatric psychiatric treatment -Superficial abrasion noted to left inner aspect of wrist, well healed #Hypokalemic Recurrent, continue with daily supplementation -Continue Potassium chloride 40 mg p.o. daily -K WNL DVT prophylaxis: Lovenox 40mg SQ daily Diet: Low fat, safe tray Disposition: pending possible d/c to geriatric psychiatric unit At this time patient is medically clear for inpatient psychiatric treatment Admission and Anticipated Discharge Date Admission Date: September 08, 2025 Supervising Physician Co-Signing Physician Notes Attending Attestation: Chart reviewed, care plan d/w JOHANNY Teague. I agree w/ the doran components of her documentation. Mateo Hernandez MD Subjective Patient awake and oriented this am. He is eating and drinking well. Reports he is happy he had coffee this am. Last BM 09/16/25. Reports he is still agreeable to voluntarily being transferred to inpatient zeynep-psych unit upon discharge. He adamantly denies thoughts of self harm. 1:1 remains for patient safety. Review of Systems Review of Systems: All systems reviewed & are unremarkable except as noted in Subjective Physical Exam Physical Exam: GENERAL APPEARANCE: A&O. Sitting comfortably in bed. NAD. SKIN: Normal color without rashes or lesions. Normal turgor. HEENT: Head AT/NC. Buccal mucosa is moist and pink. NECK: No jugular venous distention. No thyroid enlargement. There is no lymphadenopathy. HEART: RRR without m/g/r LUNGS: Normal inspiratory effort. CTA without w/r/r ABDOMEN: No guarding or rigidity. Normoactive BS in all four quadrants. Abdomen soft and NT. MSK: No bony gross/deformities throughout. ROM intact. EXTREMITIES: No edema, No peripheral cyanosis. Superficial abrasion without redness or drainage, open to air present to left inner aspect of wrist. Neuro: CN 2-12 grossly intact. No focal neuro deficits PSYCHIATRIC: Normal affect. Eye contact is good. Speech is normal rate and content. Responses are appropriate. Results & Data Results & Data Vital Signs (Past 12 Hours) Vital Signs Temp Pulse Resp BP Pulse Ox O2 Del Method 09/17/25 07:30 Room Air 09/17/25 07:11 36.5 C 74 18 101/67 94 Room Air Laboratory Results Labs reviewed: CBC, renal function panel PG Care Time/CCT Total # of Minutes Spent Total Time Spent with Patient: Total time spent is greater than 50% in coordination of care (as documented) at patient's floor/unit and/or counseling patient: Coding Level of Care Code 89889 SUB INP/OBS CARE 2/35MIN Diagnoses Acute lower urinary tract infection N39.0 Intentional self-harm X83.8XXA Nonadherence to medical treatment Z91.199 Hypokalemia E87.6 Superficial laceration of forearm S51.819A Schizoaffective disorder, depressive type F25.1 Schizoaffective disorder type: depressive Delusional thoughts F22 (6) Schizoaffective disorder Schizoaffective disorder type: depressive Qualified Code(s): F25.1 - Schizoaffective disorder, depressive type
[2025-09-17 14:52] VITALS: BP 99/65; TEMP 97.9; O2SAT 93
--- NOTE | 2025-09-17 16:02 | Psychiatric Progress Note ---
Date of Service September 17, 2025 Impression / Recommendations Impression Diagnostically consistent with schizoaffective disorder on clozapine as well as likely cognitive impairment with increased delusions about having excessive blood leading to suicide attempt vs delusional driven cut to his wrist vs 2/2 possible delirium from UTI. He recently self-discontinued his clozapine for about 7 days so certainly possible he experienced some abrupt clozapine- withdrawal psychosis versus increased psychosis in setting of recent medication adherence vs from UTI. A: Patient presents with good orientation and alertness, does not appear to be ruminating on past delusions, and presents a rational and safe plan. Has been medication adherent and appears to be approaching his baseline. No acute imminent risks identified at this time. Consider discharge back to home facility. Overall, I spent a total of 80 minutes with this case including review of chart records, review of labwork, direct evaluation of the patient at bedside, counseling the patient, discussion of the patient with the Nurse and with the hospitalist provider, discussion with the psychiatric liason during clinical rounds and documentation in the electronic health record. (1) Schizoaffective disorder: (2) Delusional thoughts: (3) Superficial laceration of forearm: Plan 09/17/25: D/C bedside sitter Return back to home facility once medically cleared 09/15/2025: -now medically stable, 201 commitment, geriatric bed search in progress -continue 1-on-1 for now given recent suicide attempt vs self-harm from delusions but if he continues to deny SI could consider trial off of this and change to q15 minute checks -continue psychiatric medications as ordered 09/11/2025: -Continue current psychiatric medication (clozapine and sertraline). ANC reviewed. -Psych liason to get further collateral from sister or brother -Plan for likely geriatric psychiatry referral once medically stable (currently being treated for UTI) 09/10/25: Continue current medications proactively use a stool softener likedocusate, combined with an osmotic laxative (e.g.,polyethylene glycol) to prevent Clozapine induced constipation 09/09/25 If pateint has been off CLozapine for longer than 3 days, will need to start at 25mg and taper up by adding 25mg daily until reaching his regular dose. CBC to monitor ANC (currently elevated due to infection) Interval History Identifying Information VALERIA WREN is a 69-year-old male who presents after attempted self-harm at the [facility] found to have an acute urinary tract infection. Psychiatry consulted due to an episode of self-inflicted injury in an apparent suicide attempt. Chief Complaint Recent delusions Subjective Subjective Patient was seen & assessed and interval progress reviewed with treatment team nursing and social work Patient is alert and oriented to himself, year, month, situation. Complains of back pain from possible recent fall. Denies other pain. Reports feeling safe in the hospital. Answers my questions appropriately and presents good concentration. Denies any auditory visual hallucinations. Denies burning on urination or retaining urine. Reports being in his [facility] since 2020. Denies any plans or urge or impulse to cut himself to release blood. Presents with plan to talk to a friend at the facility and return to gardening. Collateral from the bedside sitter is unremarkable and patient presents stable behavior. Patient gives unclear answer about why clozapine was stopped however does endorse he plans to continue the medications. Physical Exam Mental Examination Appearance: Disheveled Eye Contact: Maintains Eye Contact Motor Behavior: Restless (EPS, perioral and hand movements) Speech: Slurred Mood: Euthymic and Calm Affect: Congruent Thought Process: Intact and Linear Thought Content: Intact Hallucinations: None Insight: Fair (to limited) Judgement: Fair Vital Signs (Past 24 Hours) Last Vital Signs Temp 36.6 C 09/17/25 14:50 Pulse 74 09/17/25 14:50 Resp 18 09/17/25 14:50 BP 99/65 L 09/17/25 14:50 Pulse Ox 93 09/17/25 14:50 O2 Del Method Room Air 09/17/25 14:50 Results & Data ([facility]) Laboratory Results Laboratory Results - last 24 hr 09/17/25 05:42 WBC 12.39 H RBC 4.50 L Hgb 13.2 L Hct 40.4 L MCV 89.8 MCH 29.3 MCHC 32.7 RDW Std Deviation 49.1 H RDW Coeff of Stefani 14.9 H Plt Count 217 MPV 12.1 Immature Gran % (Auto) 0.5 Neut % (Auto) 71.0 Lymph % (Auto) 16.4 [place] % (Auto) 7.2 Eos % (Auto) 4.3 Baso % (Auto) 0.6 Neut # (Auto) 8.80 H Lymph # (Auto) 2.03 [place] # (Auto) 0.89 H Eos # (Auto) 0.53 H Baso # (Auto) 0.08 Immature Gran # (Auto) 0.06 Sodium 137 Potassium 4.1 Chloride 104 Carbon Dioxide 27 Anion Gap 6 BUN 14 Creatinine 0.89 Est Cr Clr Drug Dosing 57.6 eGFR 91.62 BUN/Creatinine Ratio 15.7 Glucose 87 Calcium 9.1 Phosphorus 3.4 Albumin 3.7 Current Inpatient Medications Current Inpatient Medications: Current Inpatient Medications Calcium Carbonate (Calcium Carbonate 500 Mg Chewable Tab) 1,500 mg PO Q6H PRN PRN Reason: Indigestion Stop: 10/09/25 18:18 Last Admin: 09/16/25 21:35 Dose: 1,500 mg Clozapine (Clozapine 100 Mg Tab) 100 mg PO BID@0800,1999 [facility]; Protocol Stop: 10/08/25 19:59 Last Admin: 09/17/25 08:13 Dose: 100 mg Clozapine (Clozapine 100 Mg Tab) 200 mg PO DAILY@2200 [facility] Stop: 10/08/25 21:59 Last Admin: 09/16/25 21:22 Dose: 200 mg Enoxaparin Sodium (Enoxaparin Inj 40 Mg/0.4 Ml Syr) 40 mg SQ Q24H [facility] Stop: 10/16/25 20:59 Last Admin: 09/16/25 21:25 Dose: 40 mg Guaifenesin (Guaifenesin 600 Mg Tabcr) 600 mg PO Q12 PRN PRN Reason: Cough Stop: 10/16/25 20:59 Levothyroxine Sodium (Levothyroxine Sodium 137 Mcg Tablet) [facility]: 10/09/25 06:29 Last Admin: 09/17/25 05:46 Dose: 137 mcg Linaclotide (Linaclotide 145 Mcg Capsule) 290 mcg PO DAILY [facility] Stop: 10/09/25 08:59 Last Admin: 09/17/25 08:13 Dose: 290 mcg Melatonin (Melatonin 3 Mg Tab) 6 mg PO HS PRN PRN Reason: Sleep Stop: 10/15/25 00:25 Last Admin: 09/16/25 21:22 Dose: 6 mg Ondansetron HCl (Ondansetron Inj 2 Mg/Ml 2 Ml Vial) 4 mg IV Q6H PRN PRN Reason: Nausea And Vomiting Stop: 10/09/25 20:08 Last Admin: 09/09/25 20:20 Dose: 4 mg Pantoprazole Sodium (Pantoprazole 40 Mg Tab) 40 mg PO BID [facility] Stop: 10/08/25 20:59 Last Admin: 09/17/25 08:13 Dose: 40 mg Polyethylene Glycol (Polyethylene (Miralax) 17 Gm Pack) 17 gm PO DAILY [facility] Stop: 10/09/25 08:59 Last Admin: 09/17/25 08:14 Dose: 17 gm Potassium Chloride (Potassium Chloride Crtab 20 Meq Tabcr) 40 meq PO QAM [facility] Stop: 10/12/25 08:59 Last Admin: 09/17/25 08:18 Dose: 40 meq Sertraline HCl (Sertraline Hcl 50 Mg Tablet) 50 mg PO DAILY [facility] Stop: 10/09/25 08:59 Last Admin: 09/17/25 08:13 Dose: 50 mg (1) Schizoaffective disorder Schizoaffective disorder type: depressive Qualified Code(s): F25.1 - Schizoaffective disorder, depressive type
--- NOTE | 2025-09-17 16:06 | Discharge Summary ---
Discharge Summary Date of Service September 17, 2025 Principal Dx & Hospital Course #1 = Principal Diagnosis (1) Acute lower urinary tract infection: (2) Intentional self-harm: (3) Nonadherence to medical treatment: (4) Hypokalemia: (5) Superficial laceration of forearm: (6) Schizoaffective disorder: (7) Delusional thoughts: Plan 69-year-old male who presents after attempted self-harm at the [facility] [facility] found to have an acute urinary tract infection, self-discontinuation of antipsychotic pharmaceuticals with exacerbative symptoms of schizophrenia. Patient stable for d/c to [facility] [place] [facility] after being evaluated by psychiatry today and deemed appropriate for transition to original living arrangements as his he has been without suicidality or overt delusional thoughts since transitioning back on to Clozaril. He fully completed course of Ertapenem for E.Coli ESBL. #Acute bacterial cystitis without hemorrhage Discontinued Rocephin 2 g IV daily Urine cultures with ESBL E. coli -Discontinued Zosyn, ID recommendations with initiation of Ertapenem at 1000mg Q24H (plan to treat for total of 7d for ESBL E. Coli cystitis)-->>EOT after 09/17 dose (he has fully finished course) -Blood cultures NGTD after 5d ##Leukocytosis -has been with transient, fluctuating elevated WBCs since 2018 -possible correlation to Clozaril -WBC 12.39 -Resp Biofire neg -2V Chest XRAY without airspace consolidation or pleural effusion -added Mucinex prn for cough #Suicidal ideation // Schizoaffective disorder Patient self discontinued the majority of their medications at their [facility] [place] [facility]; this may have also been up overall and precipitating their altered behavior and suicide attempt -Psychiatry consulted; recommend discharge to an inpatient geriatric psychiatry service -302 denied for patient, he is agreeable to signing 201 for continued inpatient geriatric psychiatric treatment -Superficial abrasion noted to left inner aspect of wrist, well healed #Hypokalemic Recurrent, continue with daily supplementation -Continue Potassium chloride 40 mg p.o. daily -K WNL DVT prophylaxis: Lovenox 40mg SQ daily Diet: Low fat, safe tray Disposition: pending possible d/c to geriatric psychiatric unit Notes For Next Care Provider Please monitor CBC upon discharge as patient has transient leukocytosis Medication Changes From Visit No medication changes Admission HPI Per Admitting Provider Mr. Rapp is a 69-year-old male whose active medical conditions include schizoaffective disorder, hypothyroidism, slow transit constipation among other chronic medical conditions who presented to the [facility] on 09/08 after an episode of self-inflicted injury in a proposed suicide attempt. The patient at the time my evaluation is not very participatory in history taking; they describe they discontinue taking their medications on 09/03 for reasons they did not specify to me. This morning, the patient began cutting their left wrist because they feel they have "too much blood". The patient is vague with respect to whether or not this was a suicide attempt stating they "would not mind dying". Patient states they have irregular bowel movements, most recently 1 was on Saturday, the . He states these are easily passed. He denies any pain with urination but does endorse increased frequency of urination. They deny any hematuria, fevers, chills, nausea, vomiting, abdominal pain or distention. Discharge Plan Discharge Items Patient Disposition: Personal [facility] Reason For Visit: COMPLICATED UTI, SUICIDAL IDEATION Discharge Diagnosis: Suicidal thoughts, UTI Condition on Discharge: Good Activity: Resume your previous activity Bathing: No limitations Driving/Machine Use: No limitations Weightbearing: Full weightbearing Non-emergency contact: Primary Care Provider Call non-emergency contact if: you have any medication questions, your pain is not controlled, your pain is concerning for you and you have a fever Follow-up/Referrals: Shruthi Rodríguez CRNP [Primary Care Provider] - Diet: Low Fat Addtl Attending Provider Instructions: Mr. Rapp, You were hospitalized for thoughts of self harm and you can safely return to your assisted living facility. You were restarted on your Clozaril and it is imp ortant you take this medication daily as directed to help your mood and to decrease thoughts of self harm. Please do not miss any doses of this medication. If you have thoughts of self harm please return to the emergency department for assistance and help. We are always here to support you and to keep you safe. You were also treated for a urinary tract infection which has fully resolved with antibiotics you received through an IV. Please follow up with your family doctor within one week of discharge. Medications: Your medication list has been reviewed and reconciled upon discharge to ensure accuracy and continuity of care. An updated list of all your medications is included with your hospital discharge paperwork. Please review this list closely, and make note of any changes. Take your medications as instructed; do not skip a dose of your medicines. Make sure all of your doctors know every medicine you are taking (including [id number]-[id number] medicines, vitamins, and supplements). Call your primary care provider before taking any new medicines (including over- the-counter medicines, vitamins, and supplements), because some of these may interact with your current medications, or may make your symptoms worse. Tell your primary care provider if you cannot afford your medications. Activity: You can do normal everyday activities as your body allows. Take rest breaks if you feel tired. Do not overexert. Stop activity if you have pain, shortness of breath or feel dizzy. Follow-up appointments: Make an appointment with your primary care physician within one week of discharge. A copy of this summary will be sent to them. Every time you see your primary care physician, or any other doctor, bring your medication list, and a list of questions. CONTACT YOUR PRIMARY CARE PROVIDER if you experience any of the following: Shortness of breath or difficulty breathing Fevers or chills Feeling tired with normal activity or experiencing dizziness or fainting Difficulty following your treatment plan, or difficulty taking medications CALL 911 OR GO TO THE EMERGENCY DEPARTMENT if you experience any of the following: Severe abdominal pain or nausea/vomiting Severe chest pain, or chest pain that radiates (moves) to your jaw or arm Sudden, severe shortness of breath or difficulty breathing Thank you for allowing us to participate in your care. Pending Studies at Discharge: No Stand-Alone Forms: My [employer], Smoking Cessation Skilled Items Patient informed of condition?: Yes DNR: No Discharge Level of Care: Other Communicable Disease: No Discharge Prognosis: Stable Lines: None Urinary Catheter: No Medications and DC Order Prescriptions: New clozapine 100 mg Tablet 200 mg PO DAILY@2200 Qty: 30 0RF clozapine 100 mg Tablet 100 mg PO BID@0800,2000 Qty: 30 0RF potassium chloride 20 mEq Tablet,Er Particles/Crystals 40 meq PO QAM Qty: 30 0RF calcium carbonate [Tums] 200 mg calcium (500 mg) Tablet,Chewable 1,500 mg PO Q6H PRN (Reason: dyspepsia) Qty: 30 0RF sertraline 50 mg Tablet 50 mg PO DAILY Qty: 30 0RF Linzess 145 mcg Capsule 290 mcg PO DAILY Qty: 30 0RF levothyroxine 137 mcg Tablet 137 mcg PO DAILYBB Qty: 30 0RF polyethylene glycol 3350 [Miralax] 17 gram Powder In Packet 17 g PO DAILY Qty: 30 0RF pantoprazole 40 mg Tablet,Delayed Release (Dr/Ec) 40 mg PO BID Qty: 30 0RF Continued cyanocobalamin (vitamin B-12) [Vitamin B-12] 1,000 mcg tablet 1,000 mcg PO DAILY Qty: 90 3RF cholecalciferol (vitamin D3) [Vitamin D3] 50 mcg (2,000 unit) tablet 2,000 unit PO QPM acetaminophen 325 mg Tablet 325 - 650 mg PO Q6 MDD 3g PRN (Reason: pain.) Fleet Enema 19-7 gram/118 mL enema 118 ml VA DAILY PRN (Reason: constipation) Qty: 133 0RF Rx Instructions: Please use as needed if you do not move your bowels for greater than 3 days. hydroxyzine pamoate 25 mg capsule 25 mg PO HS Qty: 5 0RF Changed ferrous sulfate 325 mg (65 mg iron) tablet 325 mg PO QAM Qty: 30 0RF Discontinued clozapine 200 mg tablet 200 mg PO HS omeprazole 20 mg capsule,delayed release(DR/EC) 20 mg PO BID clozapine 100 mg tablet 100 mg PO BID Rx Instructions: 8am, 8pm levothyroxine 137 mcg tablet 137 mcg PO QAM sertraline 50 mg tablet 50 mg PO DAILY calcium carbonate [Calcium 600] 600 mg calcium (1,500 mg) tablet 600 mg PO QAM cholecalciferol (vitamin D3) [Vitamin D3] 25 mcg (1,000 unit) Tablet 25 mcg PO QPM eucalyptus-menthol Lozenge 1 john paul MUCOUS MEMBRANE Q4 PRN (Reason: Cough) sennosides [Senna Lax] 8.6 mg Tablet 8.6 mg PO QPM Qty: 30 0RF Linzess 290 mcg capsule 290 mcg PO DAILY Qty: 30 0RF polyethylene glycol 3350 [Miralax] 17 gram/dose powder 17 g PO DAILY Qty: 119 0RF Discharge Orders: Discharge Order (Routine); Ordered 09/17/25 Ordered By: Carina Teague Admission Data Admit Date/Time: 09/08/25 13:32 Attending Provider: Mateo Hernandezit Provider: Stu Roberts Primary Care Provider: Shruthi Rodríguez Other Providers: Stu Roberts; Anastacia Moseley; Eyad Brewer; Marylin Mckoy; Tawnya Fiore; Manav Oates; Ha Guallpa; Demarcus Austin; Jess Ching Hospital Stay Data Consultations 09/08/25 13:25 ED Decision to Admit Stat 09/08/25 23:13 Consult Psychiatry Routine 09/11/25 07:57 Consult Infectious Diseases Routine Diagnostic Imagining Performed 09/08/25 11:58 CT head/brain wo con Stat Pending Results Patient Have Any Pending Studies at Discharge: No Discharge Instructions Given to Patient (Per Discharging Provider) Mr. Rapp, Rinku were hospitalized for thoughts of self harm and you can safely return to your assisted living facility. You were restarted on your Clozaril and it is important you take this medication daily as directed to help your mood and to decrease thoughts of self harm. Please do not miss any doses of this medication. If you have thoughts of self harm please return to the emergency department for assistance and help. We are always here to support you and to keep you safe. You were also treated for a urinary tract infection which has fully resolved with antibiotics you received through an IV. Please follow up with your family doctor within one week of discharge. Medications: Your medication list has been reviewed and reconciled upon discharge to ensure accuracy and continuity of care. An updated list of all your medications is included with your hospital discharge paperwork. Please review this list closely, and make note of any changes. Take your medications as instructed; do not skip a dose of your medicines. Make sure all of your doctors know every medicine you are taking (including lzdf-hxc-smqkahk medicines, vitamins, and supplements). Call your primary care provider before taking any new medicines (including over- the-counter medicines, vitamins, and supplements), because some of these may interact with your current medications, or may make your symptoms worse. Tell your primary care provider if you cannot afford your medications. Activity: You can do normal everyday activities as your body allows. Take rest breaks if you feel tired. Do not overexert. Stop activity if you have pain, shortness of breath or feel dizzy. Follow-up appointments: Make an appointment with your primary care physician within one week of discha rge. A copy of this summary will be sent to them. Every time you see your primary care physician, or any other doctor, bring your medication list, and a list of questions. CONTACT YOUR PRIMARY CARE PROVIDER if you experience any of the following: Shortness of breath or difficulty breathing Fevers or chills Feeling tired with normal activity or experiencing dizziness or fainting Difficulty following your treatment plan, or difficulty taking medications CALL 911 OR GO TO THE EMERGENCY DEPARTMENT if you experience any of the following: Severe abdominal pain or nausea/vomiting Severe chest pain, or chest pain that radiates (moves) to your jaw or arm Sudden, severe shortness of breath or difficulty breathing Thank you for allowing us to participate in your care. Total Time Total Time Spent Total Time Spent (In Minutes): I spent a total of 40 minutes on the date of service in review of patient's record, and previously obtained information in person and appropriate medical visit, discussion and education of plan, with patient and/or caregiver, placing orders for tests/referral/procedures as medically necessary and documentation of pertinent clinical information in patient's medical records for their visit today. Coding Level of Care Code 09662 INP/OBS DISCH >30 MIN Diagnoses Acute lower urinary tract infection N39.0 Intentional self-harm X83.8XXA Nonadherence to medical treatment Z91.199 Hypokalemia E87.6 Superficial laceration of forearm S51.819A Schizoaffective disorder, depressive type F25.1 Schizoaffective disorder type: depressive Delusional thoughts F22
== END 2025-09-17 16:28 | disposition home or self-care (01) | DRG 690 ==
LOC: ED 11:13 → SUATTDRO 13:32 → EDINP 13:32 → 3N 22:04